=== PATIENT | male | born 1940 | race Caucasian/White ===

== ENCOUNTER 2016-05-12 06:36 | Inpatient (IN) | payer MEDICARE, BC ==
[2016-05-12 06:37] VITALS: BMI 26.7
[2016-05-12] MEDS ORDERED: Sodium Chloride 0.9% 1,000 ML IV ONE (07:15)
[2016-05-12] MEDS ORDERED: Pantoprazole 80 MG in Sodium Chloride 0.9% 100 ML IV STA (07:25)
[2016-05-12] MEDS ORDERED: Sodium Chloride 0.9% 1,000 ML ONE (07:26)
--- NOTE | 2016-05-12 07:33 | C.PDOC ---
History Of Present Illness Patient is a 75 y/o male, whose PMHx includes HTN, diabetes, anemia, afib, and prior CVA, presents to the ED for evaluation of bright red blood per rectum. Patient states he noticed blood yesterday and today as well. Patient states he had colonoscopy done on 05/09/[address] Nelson and had 2 polyps removed. at bedside called Dr. Nelson's office who instructed him to report to ED for further evaluation. Otherwise, patient denies any rectal pain, abdominal pain, nausea, vomiting, dizziness, headache, chest pain, shortness of breath, fever, or any other associated symptoms at this time. Time Seen by Provider: 05/12/16 07:14 Chief Complaint (Nursing): GI Problem History Per: Patient, Family History/Exam Limitations: clinical condition Onset/Duration Of Symptoms: Days (1) Current Symptoms Are (Timing): Still Present Number Of Bleeding Episodes: Multiple: (2) Amount of Blood Loss: Small Severity: None Pain Scale Rating Of: 0 Associated Symptoms: Rectal Bleeding. denies: Nausea, Vomiting, Diarrhea, Hematemesis, Bloody Diarrhea, Lightheadedness Modifying Factors: None Currently Taking: Warfarin Recent travel outside of the [place]: No Additional History Per: Patient Past Medical History Reviewed: Historical Data, Nursing Documentation, Vital Signs Vital Signs: Last Vital Signs Temp 97.7 F 05/12/16 06:43 Pulse 69 05/12/16 06:43 Resp 20 05/12/16 06:43 BP 155/73 H 05/12/16 06:43 Pulse Ox 98 05/12/16 08:24 - Medical History PMH: Atrial Fibrillation, HTN, Hypercholesterolemia Surgical History: Pacemaker Family History: States: Unknown Family Hx - Social History Hx Alcohol Use: No - Immunization History Hx Tetanus Toxoid Vaccination: No Hx Influenza Vaccination: Yes (11/2014) Hx Pneumococcal Vaccination: Yes (2011) Review Of Systems Constitutional: Negative for: Fever, Chills, Weakness Cardiovascular: Negative for: Chest Pain, Palpitations, Light Headedness Respiratory: Negative for: Shortness of Breath Gastrointestinal: Positive for: Hematochezia. Negative for: Nausea, Vomiting, Abdominal Pain, Diarrhea, Constipation, Hematemesis, Rectal Pain Genitourinary: Negative for: Dysuria Musculoskeletal: Negative for: Neck Pain, Back Pain Neurological: Negative for: Headache, Dizziness Physical Exam - Physical Exam Appears: Non-toxic, No Acute Distress Skin: Normal Color, Warm, Dry Head: Atraumatic, Normacephalic Eye(s): bilateral: Normal Inspection, EOMI Neck: Normal ROM, Supple Chest: Symmetrical, No Tenderness, Other (pacemaker right chest wall) Cardiovascular: Rhythm Regular Respiratory: Normal Breath Sounds, No Rales, No Rhonchi, No Wheezing Gastrointestinal/Abdominal: Normal Exam, Soft, No Tenderness, No Guarding, No Rebound Rectal: Rectal Tone (normal tone), Blood Streaked Stool (bright red blood per rectum), No Tenderness Back: Normal Inspection, No Vertebral Tenderness, No Paraspinal Tenderness Extremity: Bilateral: Atraumatic, No Pedal Edema, Normal Color And Temperature, Normal ROM Neurological/Psych: Oriented x3, Normal Speech ED Course And Treatment - Laboratory Results Result Diagrams: 05/12/16 07:38 05/12/16 07:38 Lab Interpretation: Abnormal ECG: Interpreted By Me, Viewed By Me ECG Rhythm: V Paced Interpretation Of ECG: ventricular-paced rhythm at 77 bpm. No acute change from prior EKG on 07/26/2015 Rate From EC (bpm) O2 Sat by Pulse Oximetry: 98 (on RA) Pulse Ox Interpretation: Normal Progress Note: Labs, EKG, obstructive series x-ray ordered and reviewed. Patient was treated with IV fluids, and Protonix inj. Medical Decision Making Medical Decision Making: Impression: 75 y.o male with GI bleed s.p colonoscopy and postpolypectomy. Low suspicion for perforation, patient has no abdominal pain or other related symptoms Plan: * CBC * CMP * PT/INR * IV NS, Protonix * EKG * Obstructive series Progress: Obstructive series show normal chest with pacemaker, no free air or signs of mechanical obstruction Labs show low H/H of 11/32, change from 13/40 on last visit 07/26/15 0819: Spoke with Dr Man who is covering for Dr Nelson, recommends admission and will see as consult 0820: Spoke with Dr Vazquez and discussed case who accepts patient for admission. Disposition - Disposition Disposition: HOSPITALIZED Disposition Time: 08:22 Condition: FAIR - POA Present On Arrival: None - Clinical Impression Clinical Impression: Post-polypectomy bleeding, Afib - PA / SWIM INSTRUCTOR / Resident Statement MD/DO has reviewed & agrees with the documentation as recorded. - Scribe Statement The provider has reviewed the documentation as recorded by the Scribe Erick Garcia All medical record entries made by the Luisibe were at my direction and personally dictated by me. I have reviewed the chart and agree that the record accurately reflects my personal performance of the history, physical exam, medical decision making, and the department course for this patient. I have also personally directed, reviewed, and agree with the discharge instructions and disposition. Decision To Admit - Pt Status Changed To: Hospital Disposition Of: Inpatient - Admit Certification Admit to Inpatient:: After my assessment, the patient will require hospitalization for at least two midnights. This is because of the severity of symptoms shown, intensity of services needed, and/or the medical risk in this patient being treated as an outpatient. - InPatient: Physician Admission Certification: I certify that this patient requires 2 or more midnights of care for the following reason:: Patient with history of Afib and active GI bleed - . Bed Request Type: Telemetry Admitting Physician: Rocky Vazquez Patient Diagnosis: Post-polypectomy bleeding, Afib
[2016-05-12 07:56] LABS: BASO # 0.1 K/uL (0.0-0.2); BASO % 1.1 % (0.0-2.0); EOS # 0.4 K/uL (0.0-0.7); EOS % 3.9 % (0.0-4.0); HEMATOCRIT 32.7 % (35.0-51.0); LYMPH # 2.2 K/uL (1.0-4.3); LYMPH % 20.4 % (20.0-40.0); MEAN CELL VOLUME 91.4 fL (80.0-94.0); MEAN CORPUSCULAR HEMOGLOBIN 30.8 pg (27.0-31.0); MEAN CORPUSCULAR HGB CONC 33.7 g/dL (33.0-37.0); MEAN PLATELET VOLUME 9.6 fL (7.2-11.7); MONO # 0.6 K/uL (0.0-0.8); MONO % 5.3 % (0.0-10.0); NRBC % 0.1 % (0.0-2.0); RED CELL DISTRIBUTION WIDTH 15.7 % (11.5-14.5); WHITE BLOOD COUNT 10.7 K/uL (4.8-10.8)
[2016-05-12 08:00] LABS: CHLORIDE 105 mmol/L (98-107); SODIUM 142 mmol/L (132-148)
[2016-05-12 08:01] LABS: POTASSIUM 4.2 mmol/L (3.6-5.2)
[2016-05-12 08:03] LABS: ALKALINE PHOSPHATASE 44 U/L (38-126); ALT/SGPT 43 U/L (21-72); AST/SGOT 24 U/L (17-59); BILIRUBIN,TOTAL 0.5 mg/dL (0.2-1.3); BLOOD UREA NITROGEN 25 mg/dL (9-20); CARBON DIOXIDE 27 mmol/L (22-30); GFR AFRICAN-AMERICAN > 60; GLUCOSE,RANDOM 139 mg/dL (75-110); INR 1.3; TOTAL PROTEIN 7.3 g/dL (6.3-8.3)
[2016-05-12 08:04] LABS: CALCIUM 8.6 mg/dl (8.6-10.4)
[2016-05-12 08:06] LABS: RBC URINE < 1 /hpf (0-3); URINE BACTERIA RARE (<OCC); URINE BILIRUBIN NEGATIVE (NEGATIVE); URINE BLOOD NEGATIVE (NEGATIVE); URINE COLOR Yellow (YELLOW); URINE GLUCOSE (UA) NORMAL (Normal); URINE HYALINE CAST 0-2 /lpf (0-2); URINE KETONE NEGATIVE (NEGATIVE); URINE LEUKOCYTE ESTERASE NEG Leu/uL (Negative); URINE PROTEIN 1+ mg/dL (NEGATIVE); URINE UROBILINOGEN NORMAL mg/dL (0.2-1.0); WBC URINE < 1 /hpf (0-5)
[2016-05-12] MEDS: Dextrose 5%/0.9% NS 1,000 ML IV SCH (09:58)
--- NOTE | 2016-05-12 10:24 | CP.PCM.CON ---
History of Present Illness - History of Present Illness History of Present Illness: ASked to see pt for rectal bleeding. Covering Dr Neslon is present. She called me at 5 am that is bleeding. I sent her to ER. Had EGD and biopsy and colonoscopy and polypectomy with clips on . Coumadins was held and he eceived lovenox. Pt was told to take coumadin , but he didnt start til friday. He took lovenox friday and friday. Last night he developed a maroon stool which turned into BRBPR. Had 3 episodes of BRBPR, moderate amount. DEnies CP, SOB, fever, abdom pain. PMH: HTN, DM, A fib, anemia- Hb 11 04/24/16, CVA x 2. Review of Systems - Cardiovascular Cardiovascular: absent: Chest Pain, Diaphoresis, Dyspnea, Lightheadedness, Palpitations - Respiratory Respiratory: absent: Cough, Dyspnea, Hemoptysis - Gastrointestinal Gastrointestinal: Hematochezia. absent: Abdominal Pain, Constipation, Diarrhea , Dysphagia, Hematemesis, Melena, Vomiting - Genitourinary Genitourinary: absent: Flank Pain, Hematuria - Integumentary Integumentary: absent: Rash, Jaundice - Neurological Neurological: absent: Convulsions, Headaches - Endocrine Endocrine: absent: Flushing, Polyphagia Past Patient History - Past Medical History & Family History Past Medical History?: Yes - Past Social History Smoking Status: Never Smoked - CARDIAC Hx Atrial Fibrillation: Yes Hx Hypercholesterolemia: Yes Hx Hypertension: Yes Hx Pacemaker: Yes - PULMONARY Hx Respiratory Disorders: No - NEUROLOGICAL Hx Neurological Disorder: Yes HX Cerebrovascular Accident: Yes (x3) - ENDOCRINE/METABOLIC Hx Diabetes Mellitus Type 1: Yes - MUSCULOSKELETAL/RHEUMATOLOGICAL Hx Musculoskeletal Disorders: Yes Hx Gout: Yes - SURGICAL HISTORY Hx Surgeries: Yes Hx Cataract Extraction: Yes (Bilateral) Other/Comment: PPM - ANESTHESIA Hx Anesthesia: Yes Hx Anesthesia Reactions: No Meds Allergies/Adverse Reactions: Allergies Allergy/AdvReac Type Severity Reaction Status Date / Time IV dye Allergy Severe SHORTNESS Uncoded 07/26/15 21:33 OF BREATH - Medications Medications: Current Medications Carvedilol (Coreg) 25 mg PO BID [facility] Digoxin (Lanoxin) 0.25 mg PO DAILY [facility] Dextrose/Sodium Chloride (Dextrose 5%/0.9% Ns 1000 Ml) 1,000 mls @ 100 mls/hr IV UPON ADM [facility] Last Admin: 05/12/16 09:58 Dose: 100 mls/hr Insulin Aspart (Novolog) 0 unit SC ACHS [facility] PRN Reason: Protocol Latanoprost (Xalatan Opht) 0.01 ml OU HS [facility] Lisinopril (Zestril) 10 mg PO DAILY [facility] Pantoprazole Sodium (Protonix Ec Tab) 40 mg PO DAILY [facility] Physical Exam - Constitutional Appears: Well - ENT Exam ENT Exam: Normal Exam - Neck Exam Neck exam: Positive for: Full Rom - Respiratory Exam Respiratory Exam: Clear to Auscultation Bilateral - Cardiovascular Exam Cardiovascular Exam: Irregular Rhythm. absent: REGULAR RHYTHM - GI/Abdominal Exam GI & Abdominal Exam: Normal Bowel Sounds, Soft. absent: Guarding, Tenderness - Extremities Exam Extremities exam: Negative for: calf tenderness - Neurological Exam Neurological exam: Alert, Oriented x3 - Psychiatric Exam Psychiatric exam: Normal Affect Results - Vital Signs Recent Vital Signs: Last Vital Signs Temp 97.7 F 05/12/16 06:43 Pulse 69 05/12/16 06:43 Resp 20 05/12/16 06:43 BP 155/73 H 05/12/16 06:43 Pulse Ox 98 05/12/16 08:36 - Labs Result Diagrams: 05/12/16 07:38 05/12/16 07:38 Assessment & Plan (1) Afib Assessment and Plan: On coumadin. Bridged with lovenox for colonsocopy Status: Acute (2) Post-polypectomy bleeding Assessment and Plan: Lower GI bleed. Likely post- polypectomy. Hb is the same as baseline. REC: Follow for bleeding. Check Hb. Hold coumadin. Hold lovenox. NPO, . COnsider repeat colonoscopy. Status: Acute (3) Hypertension Status: Acute (4) IDDM (insulin dependent diabetes mellitus) Status: Acute (5) Cerebrovascular accident (CVA) Status: Acute (6) Colon polyps Assessment and Plan: Check path Status: Acute (7) Diverticulosis Assessment and Plan: Seen at colonoscopy. Status: Acute
[2016-05-12] MEDS ORDERED: Digoxin 250 mcg (0.25 mg) Tab ONE (10:26)
[2016-05-12] MEDS ORDERED: Pantoprazole 40 mg EC Tab PO ONE (10:27)
[2016-05-12] MEDS: Digoxin 250 mcg (0.25 mg) Tab PO SCH (10:31)
[2016-05-12] MEDS: Pantoprazole 40 mg EC Tab PO SCH (10:32)
[2016-05-12 13:01] LABS: HEMATOCRIT 31.1 % (35.0-51.0); MEAN CELL VOLUME 92.1 fL (80.0-94.0); MEAN CORPUSCULAR HEMOGLOBIN 30.3 pg (27.0-31.0); MEAN CORPUSCULAR HGB CONC 32.9 g/dL (33.0-37.0); MEAN PLATELET VOLUME 9.7 fL (7.2-11.7); RED CELL DISTRIBUTION WIDTH 15.3 % (11.5-14.5); WHITE BLOOD COUNT 11.6 K/uL (4.8-10.8)
--- NOTE | 2016-05-12 13:12 | RAD ---
Chest abdominal series dated 05/12/2016. History: GI bleed. Frontal view of the chest and supine/erect views of the abdomen performed. Comparison made with obstructive series dated prior chest radiograph dated 09/08/2015. No change right-sided bipolar pacemaker. Cardiomegaly. Mild bibasilar atelectasis left greater than right. No evidence of free intraperitoneal air under the diaphragmatic surfaces so far as can be seen. No evidence of acute mechanical bowel obstruction. Large amount of stool seen throughout the colon consistent with fecal retention/ constipation. Thin metallic clips/ wires seen overlying the left upper and right mid abdomen. Impression: Mild bibasilar atelectasis. Findings consistent with constipation.
[2016-05-12] MEDS ORDERED: Peg-Electrolyte Oral Soln 4L (Golytely) PO ONE (14:00)
[2016-05-12 17:29] LABS: BASO # 0.1 K/uL (0.0-0.2); BASO % 0.9 % (0.0-2.0); EOS # 0.3 K/uL (0.0-0.7); EOS % 2.8 % (0.0-4.0); HEMATOCRIT 29.7 % (35.0-51.0); LYMPH # 2.3 K/uL (1.0-4.3); LYMPH % 21.7 % (20.0-40.0); MEAN CELL VOLUME 91.2 fL (80.0-94.0); MEAN CORPUSCULAR HEMOGLOBIN 30.3 pg (27.0-31.0); MEAN CORPUSCULAR HGB CONC 33.2 g/dL (33.0-37.0); MEAN PLATELET VOLUME 9.7 fL (7.2-11.7); MONO # 0.6 K/uL (0.0-0.8); RED CELL DISTRIBUTION WIDTH 15.4 % (11.5-14.5); WHITE BLOOD COUNT 10.4 K/uL (4.8-10.8)
--- NOTE | 2016-05-12 17:45 | CP.PCM.HP ---
History of Present Illness - History of Present Illness History of Present Illness: 75 years old [place] male was brought to the ED at [facility] complaining of passing bright red blood per rectum last night. Patient underwent a colonoscopy 2 days ago for anemia, and 2 colnic plyps were resected and clipped. He resume Warfarin and Lovenox lest night. He denies any abdominal pain , any nausea, vomitng. His Hgb in the ED went from 11.0 to 10.2. No complaint of weakness, dizziness. Known to have a chronic atrial fibrillation, a hypertension, an IDDM, a permanent pacemaker, a s/p CVA with residual mild dysarthria, his Warfarin was held 5 days prior to the colonoscopy and Levenox was instituted until the morning one prior to the colonoscopy. Present on Admission - Present on Admission Any Indicators Present on Admission: No Review of Systems - Gastrointestinal Gastrointestinal: Hematochezia Past Patient History - Infectious Disease Hx of Infectious Diseases: None - Tetanus Immunizations Tetanus Immunization: Unknown - Past Medical History & Family History Past Medical History?: Yes - Past Social History Smoking Status: Never Smoked Alcohol: None Home Situation {Lives}: With Family Domestic Violence: Negative - CARDIAC Hx Atrial Fibrillation: Yes Hx Hypercholesterolemia: Yes Hx Hypertension: Yes Hx Pacemaker: Yes - PULMONARY Hx Respiratory Disorders: No - NEUROLOGICAL Hx Neurological Disorder: Yes HX Cerebrovascular Accident: Yes (x3) - ENDOCRINE/METABOLIC Hx Diabetes Mellitus Type 1: Yes - MUSCULOSKELETAL/RHEUMATOLOGICAL Hx Musculoskeletal Disorders: Yes Hx Gout: Yes - SURGICAL HISTORY Hx Surgeries: Yes Hx Cataract Extraction: Yes (Bilateral) Other/Comment: PPM - ANESTHESIA Hx Anesthesia: Yes Hx Anesthesia Reactions: No Meds Allergies/Adverse Reactions: Allergies Allergy/AdvReac Type Severity Reaction Status Date / Time IV dye Allergy Severe SHORTNESS Uncoded 07/26/15 21:33 OF BREATH Physical Exam - Constitutional Appears: Well - Head Exam Head Exam: NORMAL INSPECTION - Eye Exam Eye Exam: Normal appearance - ENT Exam ENT Exam: Normal Exam - Neck Exam Neck exam: Positive for: Normal Inspection - Respiratory Exam Respiratory Exam: Clear to Auscultation Bilateral, NORMAL BREATHING PATTERN - Cardiovascular Exam Cardiovascular Exam: Irregular Rhythm, Systolic Murmur - GI/Abdominal Exam GI & Abdominal Exam: Normal Bowel Sounds, Soft - Rectal Exam Rectal Exam: Bloody Stool - Exam Exam: NORMAL INSPECTION - Extremities Exam Extremities exam: Positive for: normal inspection - Back Exam Back exam: NORMAL INSPECTION - Neurological Exam Neurological exam: Alert, CN II-XII Intact, Normal Gait, Oriented x3, Reflexes Normal - Psychiatric Exam Psychiatric exam: Anxious - Skin Skin Exam: Dry, Intact, Normal Color, Warm Results - Vital Signs Recent Vital Signs: Last Vital Signs Temp 97.7 F 05/12/16 06:43 Pulse 58 L 05/12/16 13:38 Resp 18 05/12/16 13:38 BP 141/63 05/12/16 13:38 Pulse Ox 99 05/12/16 13:38 - Labs Result Diagrams: 05/12/16 12:49 05/12/16 07:38 Labs: Laboratory Results - last 24 hr 05/12/16 05/12/16 12:49 13:44 WBC 11.6 H RBC 3.37 L Hgb 10.2 L Hct 31.1 L MCV 92.1 MCH 30.3 MCHC 32.9 L RDW 15.3 H Plt Count 131 MPV 9.7 POC Glucose (mg/dL) 172 H Assessment & Plan (1) Rectal bleeding Assessment and Plan: NPO. Serial CBC. Admit to telemetry with VS q 4 H. Hold Lovenx, Warfarin. GI evaluation. Status: Acute (2) Chronic atrial fibrillation Assessment and Plan: To continue Carvedilol, Digoxin. Hold Warfarin, Lovenox because of rectal bleeding. Status: Acute (3) IDDM (insulin dependent diabetes mellitus) Assessment and Plan: To cover blood glucose with Novolog according to Accucheck findings. Status: Acute Decision To Admit - Pt Status Changed To: Hospital Disposition Of: Inpatient - Admit Certification Admit to Inpatient:: After my assessment, the patient will require hospitalization for at least two midnights. This is because of the severity of symptoms shown, intensity of services needed, and/or the medical risk in this patient being treated as an outpatient. - InPatient: Physician Admission Certification:: After my assessments, the patient requires hospitalization for at least 2 midnights. - . Bed Request Type: Telemetry Admitting Physician: Rocky Vazquez
[2016-05-12] MEDS: (Novolog) Insulin Aspart, Recombinant 100 u/ml 10 ml vial SC SCH ×3 (18:59→23:56)
[2016-05-12] MEDS: Latanoprost 2.5 ml Opht Soln OU SCH (23:15)
[2016-05-13] MEDS: Dextrose 5%/0.9% NS 1,000 ML IV SCH (00:51)
[2016-05-13 04:54] LABS: HEMATOCRIT 26.6 % (35.0-51.0); MEAN CELL VOLUME 90.6 fL (80.0-94.0); MEAN CORPUSCULAR HEMOGLOBIN 30.6 pg (27.0-31.0); MEAN CORPUSCULAR HGB CONC 33.8 g/dL (33.0-37.0); RED CELL DISTRIBUTION WIDTH 15.7 % (11.5-14.5); WHITE BLOOD COUNT 9.3 K/uL (4.8-10.8)
[2016-05-13] MEDS: (Novolog) Insulin Aspart, Recombinant 100 u/ml 10 ml vial SC SCH ×4 (07:51→22:00)
[2016-05-13] MEDS ORDERED: Propofol 10 mg/ml Inj (20 ML) ONE (09:46)
[2016-05-13] MEDS ORDERED: Lactated Ringer's 1,000 ML IV SCH (10:00)
[2016-05-13] MEDS: Pantoprazole 40 mg EC Tab PO SCH (11:42)
[2016-05-13 11:43] VITALS: PULSE 64
[2016-05-13] MEDS: Digoxin 250 mcg (0.25 mg) Tab PO SCH (11:43)
[2016-05-13 16:49] VITALS: RESP 20
[2016-05-13 17:18] LABS: BASO # 0.1 K/uL (0.0-0.2); BASO % 1.1 % (0.0-2.0); EOS # 0.3 K/uL (0.0-0.7); EOS % 3.1 % (0.0-4.0); HEMATOCRIT 27.8 % (35.0-51.0); LYMPH # 2.4 K/uL (1.0-4.3); MEAN CELL VOLUME 92.2 fL (80.0-94.0); MEAN CORPUSCULAR HGB CONC 32.5 g/dL (33.0-37.0); MEAN PLATELET VOLUME 9.8 fL (7.2-11.7); MONO # 0.6 K/uL (0.0-0.8); MONO % 6.3 % (0.0-10.0); RED CELL DISTRIBUTION WIDTH 15.6 % (11.5-14.5)
[2016-05-13] MEDS ORDERED: Aluminum Hydroxide/Magnesium Hydroxide Susp (30 mL) PO ONE (21:00)
[2016-05-13] MEDS: Latanoprost 2.5 ml Opht Soln OU SCH (22:10)
[2016-05-13] MEDS: Enoxaparin 80 mg Syringe SC SCH (22:10)
--- NOTE | 2016-05-13 22:40 | CP.PCM.PN ---
Subjective - Date & Time of Evaluation Date of Evaluation: 05/13/16 Time of Evaluation: 19:30 - Subjective Subjective: Patient had colonoscopy this AM. No active bleeding. Additional clips were placed at the areas of polypectomy. Patient has no complaint, on clear liquid diet. Dr Nelson advised restarting anticoagulation. If Hgb remains stable in AM, will discharge home. Objective - Vital Signs/Intake and Output Vital Signs (last 24 hours): Temp Pulse Resp BP Pulse Ox 97.2 F L 67 20 134/66 96 05/13/16 16:47 05/13/16 16:47 05/13/16 16:47 05/13/16 17:46 05/13/16 16:47 Intake and Output: 05/13/16 05/14/16 18:59 06:59 Intake Total 0 Balance 2110 - Medications Medications: Current Medications Carvedilol (Coreg) 25 mg PO BID [facility] Last Admin: 05/13/16 17:46 Dose: 25 mg Digoxin (Lanoxin) 0.25 mg PO DAILY [facility] Last Admin: 05/13/16 11:43 Dose: 0.25 mg Enoxaparin Sodium (Lovenox) 70 mg SC Q12 [facility] Last Admin: 05/13/16 22:10 Dose: 70 mg Dextrose/Sodium Chloride (Dextrose 5%/0.9% Ns 1000 Ml) 1,000 mls @ 100 mls/hr IV UPON ADM [facility] Last Admin: 05/13/16 00:51 Dose: 100 mls/hr Lactated Ringer's (Lactated Ringer's) 1,000 mls @ 100 mls/hr IV .Q10H [facility] Insulin Aspart (Novolog) 0 unit SC ACHS [facility] PRN Reason: Protocol Last Admin: 05/13/16 22:00 Dose: Not Given Latanoprost (Xalatan Opht) 0 ml OU HS [facility] Last Admin: 05/13/16 22:10 Dose: 2.5 ml Lisinopril (Zestril) 10 mg PO DAILY [facility] Last Admin: 05/13/16 11:58 Dose: Not Given Pantoprazole Sodium (Protonix Ec Tab) 40 mg PO DAILY [facility] Last Admin: 05/13/16 11:42 Dose: 40 mg - Labs Labs: 05/13/16 17:06 PT 14.0 SECONDS (9.7-12.2) H 05/12/16 07:38 INR 1.3 05/12/16 07:38 APTT 43 SECONDS (21-34) H 05/13/16 06:14 - Constitutional Appears: No Acute Distress - Head Exam Head Exam: NORMAL INSPECTION - Eye Exam Eye Exam: Normal appearance - ENT Exam ENT Exam: Normal Exam - Neck Exam Neck Exam: Normal Inspection - Respiratory Exam Respiratory Exam: Clear to Ausculation Bilateral, NORMAL BREATHING PATTERN - Cardiovascular Exam Cardiovascular Exam: Irregular Rhythm - GI/Abdominal Exam GI & Abdominal Exam: Soft, Normal Bowel Sounds - Rectal Exam Rectal Exam: Deferred - Exam Exam: NORMAL INSPECTION - Extremities Exam Extremities Exam: Normal Inspection - Back Exam Back Exam: NORMAL INSPECTION - Neurological Exam Neurological Exam: Alert, Awake, Normal Gait, Oriented x3 - Psychiatric Exam Psychiatric exam: Anxious - Skin Skin Exam: Dry, Intact, Normal Color, Warm Assessment and Plan (1) Rectal bleeding Status: Resolved (2) Chronic atrial fibrillation Assessment & Plan: Will restart Lovenox. Status: Acute (3) IDDM (insulin dependent diabetes mellitus) Assessment & Plan: To continue Glucose coverage with regular Novolog according to Accucheck findings. Status: Acute
[2016-05-14 06:21] LABS: BASO # 0.1 K/uL (0.0-0.2); BASO % 0.8 % (0.0-2.0); EOS # 0.3 K/uL (0.0-0.7); HEMATOCRIT 26.1 % (35.0-51.0); LYMPH # 2.4 K/uL (1.0-4.3); LYMPH % 27.7 % (20.0-40.0); MEAN CELL VOLUME 91.7 fL (80.0-94.0); MEAN CORPUSCULAR HEMOGLOBIN 30.4 pg (27.0-31.0); MEAN CORPUSCULAR HGB CONC 33.2 g/dL (33.0-37.0); MEAN PLATELET VOLUME 9.9 fL (7.2-11.7); MONO # 0.6 K/uL (0.0-0.8); MONO % 6.6 % (0.0-10.0); RED CELL DISTRIBUTION WIDTH 15.9 % (11.5-14.5); WHITE BLOOD COUNT 8.7 K/uL (4.8-10.8)
[2016-05-14 06:25] LABS: CHLORIDE 102 mmol/L (98-107)
[2016-05-14 06:26] LABS: POTASSIUM 3.8 mmol/L (3.6-5.2); SODIUM 139 mmol/L (132-148)
[2016-05-14 06:28] LABS: ALB/GLOB RATIO 1.1 (1.0-2.1); AST/SGOT 22 U/L (17-59); BILIRUBIN,TOTAL 0.7 mg/dL (0.2-1.3); BLOOD UREA NITROGEN 11 mg/dL (9-20); CARBON DIOXIDE 28 mmol/L (22-30); GFR AFRICAN-AMERICAN > 60; TOTAL PROTEIN 6.3 g/dL (6.3-8.3)
[2016-05-14 06:29] LABS: ALKALINE PHOSPHATASE 43 U/L (38-126); ALT/SGPT 40 U/L (21-72); CALCIUM 7.7 mg/dl (8.6-10.4); GLUCOSE,RANDOM 141 mg/dL (75-110)
[2016-05-14] MEDS: (Novolog) Insulin Aspart, Recombinant 100 u/ml 10 ml vial SC SCH ×2 (08:23→12:30)
[2016-05-14] MEDS: Pantoprazole 40 mg EC Tab PO SCH (09:43)
[2016-05-14] MEDS: Enoxaparin 80 mg Syringe SC SCH ×2 (09:44→16:14)
[2016-05-14] MEDS: Dextrose 5%/0.9% NS 1,000 ML IV SCH (09:45)
[2016-05-14 15:28] VITALS: BP 136/52; PULSE 70; TEMP 97.6; O2SAT 100
--- NOTE | 2016-05-14 15:30 | CP.PCM.PN ---
Subjective - Date & Time of Evaluation Date of Evaluation: 05/14/16 Time of Evaluation: 15:27 - Subjective Subjective: Patient a BM today: No blood in stools. VSS. Hgb: 8.6 Objective - Vital Signs/Intake and Output Vital Signs (last 24 hours): Temp Pulse Resp BP Pulse Ox 98.5 F 75 20 116/69 96 05/14/16 07:43 05/14/16 12:42 05/14/16 07:43 05/14/16 12:42 05/14/16 07:43 Intake and Output: 05/14/16 05/14/16 06:59 18:59 Intake Total 420 Balance 420 - Medications Medications: Current Medications Carvedilol (Coreg) 25 mg PO BID [facility] Last Admin: 05/14/16 09:43 Dose: 25 mg Digoxin (Lanoxin) 0.25 mg PO DAILY@1800 [facility] Enoxaparin Sodium (Lovenox) 70 mg SC Q12 [facility] Last Admin: 05/14/16 09:44 Dose: 70 mg Dextrose/Sodium Chloride (Dextrose 5%/0.9% Ns 1000 Ml) 1,000 mls @ 100 mls/hr IV UPON ADM [facility] Last Admin: 05/13/16 00:51 Dose: 100 mls/hr Lactated Ringer's (Lactated Ringer's) 1,000 mls @ 100 mls/hr IV .Q10H [facility] Insulin Aspart (Novolog) 0 unit SC ACHS [facility] PRN Reason: Protocol Last Admin: 05/14/16 12:30 Dose: 4 unit Latanoprost (Xalatan Opht) 0 ml OU HS [facility] Last Admin: 05/13/16 22:10 Dose: 2.5 ml Lisinopril (Zestril) 10 mg PO DAILY [facility] Last Admin: 05/14/16 09:43 Dose: 10 mg Pantoprazole Sodium (Protonix Ec Tab) 40 mg PO DAILY [facility] Last Admin: 05/14/16 09:43 Dose: 40 mg - Labs Labs: 05/14/16 06:08 05/14/16 06:08 PT 14.0 SECONDS (9.7-12.2) H 05/12/16 07:38 INR 1.3 05/12/16 07:38 APTT 43 SECONDS (21-34) H 05/13/16 06:14 - Constitutional Appears: No Acute Distress - Head Exam Head Exam: NORMAL INSPECTION - Eye Exam Eye Exam: Normal appearance - ENT Exam ENT Exam: Normal Exam - Neck Exam Neck Exam: Normal Inspection - Respiratory Exam Respiratory Exam: Clear to Ausculation Bilateral, NORMAL BREATHING PATTERN - Cardiovascular Exam Cardiovascular Exam: Irregular Rhythm - GI/Abdominal Exam GI & Abdominal Exam: Soft, Normal Bowel Sounds - Rectal Exam Rectal Exam: Deferred - Exam Exam: NORMAL INSPECTION - Extremities Exam Extremities Exam: Normal Inspection - Back Exam Back Exam: NORMAL INSPECTION - Neurological Exam Neurological Exam: Alert, Awake, Normal Gait, Oriented x3 - Psychiatric Exam Psychiatric exam: Anxious - Skin Skin Exam: Dry, Intact, Normal Color Assessment and Plan (1) Rectal bleeding Status: Resolved (2) Chronic atrial fibrillation Assessment & Plan: To restart Warfarin and continue Lovenox 70 mg s/c BID for another 2 days. Status: Chronic (3) IDDM (insulin dependent diabetes mellitus) Assessment & Plan: Resume his usual low fat, low salt, low carbohydrate diet. Resume all his home meds. Status: Chronic
--- NOTE | 2016-05-14 16:15 | CP.PCM.CON ---
<Talya Espino - Last Filed: 05/14/16 16:11> History of Present Illness - History of Present Illness History of Present Illness: Cardiology progress note for Dr Gerber. Reason for consult: private director of social services, gi bleeding. Patient is a 75 y/o male with PMH of afib ( was on coumadin), s/p pacemaker, DM , htn, h/o cva, and iron deficiency anemia with no residue presented on 05/12 with bright red blood per rectum. Patient had colonoscopy with polypectomy 2 days prior to presenting, where 2 polyps were removed with clipping. Patient resumed Lovenox and Coumadin prior to this episode. During this hospitalization, patient had a repeat colonoscopy with no active bleeding noted, additional clips were applied by Gi. Patient remains hemodynamically stable, on tele floor. Patient currently resting on the bed, in no acute distress, Patient denies cp, sob, headache, dizziness, palpitations. PMH: As stated above PSH: Colonoscopy, pacemaker insertion. Social: denies alcohol, tobacco or illicit drug use. Allergy: IV dye. Review of Systems - Review of Systems All systems: reviewed and no additional remarkable complaints except Review of Systems: As mentioned in HPI. Past Patient History - Infectious Disease Hx of Infectious Diseases: None - Tetanus Immunizations Tetanus Immunization: Unknown - Past Medical History & Family History Past Medical History?: Yes - Past Social History Smoking Status: Never Smoked Alcohol: None Drugs: Denies Home Situation {Lives}: With Family - CARDIAC Hx Cardiac Disorders: (A-fib) Hx Hypercholesterolemia: Yes Hx Hypertension: Yes - PULMONARY Hx Respiratory Disorders: No - NEUROLOGICAL Hx Neurological Disorder: Yes HX Cerebrovascular Accident: Yes (x3) - ENDOCRINE/METABOLIC Hx Diabetes Mellitus Type 1: Yes - MUSCULOSKELETAL/RHEUMATOLOGICAL Hx Falls: No - PSYCHIATRIC Hx Substance Use: No - SURGICAL HISTORY Hx Surgeries: Yes Hx Cataract Extraction: Yes (Bilateral) Other/Comment: PPM - ANESTHESIA Hx Anesthesia: Yes Hx Anesthesia Reactions: No Meds Home Medications: Home Medication List Medication Instructions Recorded Confirmed Type Enoxaparin [Lovenox] 70 mg SC Q12 syr 05/14/16 Rx Allergies/Adverse Reactions: Allergies Allergy/AdvReac Type Severity Reaction Status Date / Time IV dye Allergy Severe SHORTNESS Uncoded 07/26/15 21:33 OF BREATH - Medications Medications: Current Medications Carvedilol (Coreg) 25 mg PO BID [facility] Last Admin: 05/14/16 09:43 Dose: 25 mg Digoxin (Lanoxin) 0.25 mg PO DAILY@1800 DELON Enoxaparin Sodium (Lovenox) 70 mg SC Q12 [facility] Last Admin: 05/14/16 09:44 Dose: 70 mg Lactated Ringer's (Lactated Ringer's) 1,000 mls @ 100 mls/hr IV .Q10H [facility] Insulin Aspart (Novolog) 0 unit SC ACHS [facility] PRN Reason: Protocol Last Admin: 05/14/16 12:30 Dose: 4 unit Latanoprost (Xalatan Opht) 0 ml OU HS [facility] Last Admin: 05/13/16 22:10 Dose: 2.5 ml Lisinopril (Zestril) 10 mg PO DAILY [facility] Last Admin: 05/14/16 09:43 Dose: 10 mg Pantoprazole Sodium (Protonix Ec Tab) 40 mg PO DAILY [facility] Last Admin: 05/14/16 09:43 Dose: 40 mg Physical Exam - Constitutional Appears: No Acute Distress - Head Exam Head Exam: ATRAUMATIC, NORMAL INSPECTION, NORMOCEPHALIC - Eye Exam Eye Exam: EOMI, Normal appearance. absent: Scleral icterus Pupil Exam: NORMAL ACCOMODATION - ENT Exam ENT Exam: Mucous Membranes Moist - Neck Exam Neck exam: Positive for: Normal Inspection - Respiratory Exam Respiratory Exam: Clear to Auscultation Bilateral, NORMAL BREATHING PATTERN. absent: Prolonged Expiratory Phase, Rales, Rhonchi, Wheezes, Stridor - Cardiovascular Exam Cardiovascular Exam: REGULAR RHYTHM, RRR, +S1, +S2. absent: Irregular Rhythm - GI/Abdominal Exam GI & Abdominal Exam: Normal Bowel Sounds, Soft. absent: Distended, Firm, Guarding - Extremities Exam Extremities exam: Positive for: normal inspection. Negative for: tenderness - Neurological Exam Neurological exam: Alert, Oriented x3 - Psychiatric Exam Psychiatric exam: Normal Affect, Normal Mood - Skin Skin Exam: Dry, Intact, Normal Color, Warm Results - Vital Signs Recent Vital Signs: Last Vital Signs Temp 97.6 F 05/14/16 15:27 Pulse 70 05/14/16 15:27 Resp 20 05/14/16 15:27 BP 136/52 L 05/14/16 15:27 Pulse Ox 100 05/14/16 15:27 - Labs Result Diagrams: 05/14/16 06:08 05/14/16 06:08 Labs: Laboratory Results - last 24 hr 05/13/16 05/13/16 05/13/16 16:52 17:06 19:58 WBC 9.0 RBC 3.01 L Hgb 9.0 L Hct 27.8 L MCV 92.2 MCH 30.0 MCHC 32.5 L RDW 15.6 H Plt Count 127 L MPV 9.8 Neut % (Auto) 63.5 Lymph % (Auto) 26.0 [place] % (Auto) 6.3 Eos % (Auto) 3.1 Baso % (Auto) 1.1 Neut # 5.7 Lymph # 2.4 [place] # 0.6 Eos # 0.3 Baso # 0.1 Sodium Potassium Chloride Carbon Dioxide Anion Gap BUN Creatinine Est GFR ( Amer) Est GFR (Non-Af Amer) POC Glucose (mg/dL) 156 H Random Glucose Calcium Total Bilirubin AST ALT Alkaline Phosphatase Total Protein Albumin Globulin Albumin/Globulin Ratio Digoxin 1.6 05/13/16 05/14/16 05/14/16 21:16 06:08 06:35 WBC 8.7 RBC 2.84 L Hgb 8.6 L Hct 26.1 L MCV 91.7 MCH 30.4 MCHC 33.2 RDW 15.9 H Plt Count 122 L MPV 9.9 Neut % (Auto) 60.9 Lymph % (Auto) 27.7 [place] % (Auto) 6.6 Eos % (Auto) 4.0 Baso % (Auto) 0.8 Neut # 5.3 Lymph # 2.4 [place] # 0.6 Eos # 0.3 Baso # 0.1 Sodium 139 Potassium 3.8 Chloride 102 Carbon Dioxide 28 Anion Gap 13 BUN 11 Creatinine 1.0 Est GFR ( Amer) > 60 Est GFR (Non-Af Amer) > 60 POC Glucose (mg/dL) 190 H 159 H Random Glucose 141 H Calcium 7.7 L Total Bilirubin 0.7 AST 22 ALT 40 Alkaline Phosphatase 43 Total Protein 6.3 Albumin 3.3 L Globulin 3.0 Albumin/Globulin Ratio 1.1 Digoxin 05/14/16 11:24 WBC RBC Hgb Hct MCV MCH MCHC RDW Plt Count MPV Neut % (Auto) Lymph % (Auto) [place] % (Auto) Eos % (Auto) Baso % (Auto) Neut # Lymph # [place] # Eos # Baso # Sodium Potassium Chloride Carbon Dioxide Anion Gap BUN Creatinine Est GFR ( Amer) Est GFR (Non-Af Amer) POC Glucose (mg/dL) 295 H Random Glucose Calcium Total Bilirubin AST ALT Alkaline Phosphatase Total Protein Albumin Globulin Albumin/Globulin Ratio Digoxin - EKG Data EKG Interpreted by: Other (Normal pacing ventricular rythm) Assessment & Plan - Assessment and Plan (Free Text) Assessment: 75 y/o with PMH of afib ( was on coumadin), s/p pacemaker, DM, htn, h/o cva, and iron deficiency anemia s/p colonoscopy with polypectomy and clipping admitted with bright red blood per rectum. BRBPR has resolved. Plan: Patient can be discharged, to follow up with Dr Gerber as outpatient. Patient can resume anticoagulation if there's no active Gi bleeding. Resume nelson and bb. Patient seen, examined, case discussed with Dr Gerber. - Date & Time Date: 05/14/16 Time: 15:25 <Kirk Gerber - Last Filed: 05/14/16 21:46> Results - Vital Signs Recent Vital Signs: Last Vital Signs Temp 97.6 F 05/14/16 15:27 Pulse 70 05/14/16 16:00 Resp 20 05/14/16 15:27 BP 136/52 L 05/14/16 15:27 Pulse Ox 100 05/14/16 15:27 - Labs Result Diagrams: 05/14/16 06:08 05/14/16 06:08 Labs: Laboratory Results - last 24 hr 05/13/16 05/14/16 05/14/16 19:58 06:08 06:35 WBC 8.7 RBC 2.84 L Hgb 8.6 L Hct 26.1 L MCV 91.7 MCH 30.4 MCHC 33.2 RDW 15.9 H Plt Count 122 L MPV 9.9 Neut % (Auto) 60.9 Lymph % (Auto) 27.7 [place] % (Auto) 6.6 Eos % (Auto) 4.0 Baso % (Auto) 0.8 Neut # 5.3 Lymph # 2.4 [place] # 0.6 Eos # 0.3 Baso # 0.1 Sodium 139 Potassium 3.8 Chloride 102 Carbon Dioxide 28 Anion Gap 13 BUN 11 Creatinine 1.0 Est GFR ( Amer) > 60 Est GFR (Non-Af Amer) > 60 POC Glucose (mg/dL) 159 H Random Glucose 141 H Calcium 7.7 L Total Bilirubin 0.7 AST 22 ALT 40 Alkaline Phosphatase 43 Total Protein 6.3 Albumin 3.3 L Globulin 3.0 Albumin/Globulin Ratio 1.1 Digoxin 1.6 05/14/16 05/14/16 11:24 16:36 WBC RBC Hgb Hct MCV MCH MCHC RDW Plt Count MPV Neut % (Auto) Lymph % (Auto) [place] % (Auto) Eos % (Auto) Baso % (Auto) Neut # Lymph # [place] # Eos # Baso # Sodium Potassium Chloride Carbon Dioxide Anion Gap BUN Creatinine Est GFR ( Amer) Est GFR (Non-Af Amer) POC Glucose (mg/dL) 295 H 118 H Random Glucose Calcium Total Bilirubin AST ALT Alkaline Phosphatase Total Protein Albumin Globulin Albumin/Globulin Ratio Digoxin Attending/Attestation - Attestation I have personally seen and examined this patient.: Yes I have fully participated in the care of the patient.: Yes I have reviewed all pertinent clinical information: Yes Notes (Text): 05/14/16 21:46 Pt s/p ppm generator change h/o atrial fibrillation gi bleed 2 polyps found . resume a/c for stroke prevention when stable
[2016-05-14] MEDS ORDERED: Digoxin 250 mcg (0.25 mg) Tab PO SCH (18:00)
--- NOTE | 2016-05-15 08:06 | CARD ---
APPROVED REPORT EKG Measurement Heart [id number] <Conclusion> Ventricular-paced rhythm Abnormal ECG
--- NOTE | 2016-05-16 09:03 | CP.PCM.DIS ---
Provider - Provider Date of Admission: 05/12/16 08:21 Attending physician: Rocky Vazquez MD Primary care physician: Rocky Vazquez M.D. Consults: Dr. Eliezer Neslon Time Spent in preparation of Discharge (in minutes): 30 Diagnosis - Discharge Diagnosis (1) Rectal bleeding Status: Resolved (2) Chronic atrial fibrillation Status: Chronic (3) IDDM (insulin dependent diabetes mellitus) Status: Chronic Hospital Course - Lab Results Lab Results: Most Recent Lab Values WBC 8.7 K/uL (4.8-10.8) 05/14/16 06:08 RBC 2.84 Mil/uL (4.40-5.90) L 05/14/16 06:08 Hgb 8.6 g/dL (12.0-18.0) L 05/14/16 06:08 Hct 26.1 % (35.0-51.0) L 05/14/16 06:08 MCV 91.7 fL (80.0-94.0) 05/14/16 06:08 MCH 30.4 pg (27.0-31.0) 05/14/16 06:08 MCHC 33.2 g/dL (33.0-37.0) 05/14/16 06:08 RDW 15.9 % (11.5-14.5) H 05/14/16 06:08 Plt Count 122 K/uL (130-400) L 05/14/16 06:08 MPV 9.9 fL (7.2-11.7) 05/14/16 06:08 Neut % (Auto) 60.9 % (50.0-75.0) 05/14/16 06:08 Lymph % (Auto) 27.7 % (20.0-40.0) 05/14/16 06:08 [place] % (Auto) 6.6 % (0.0-10.0) 05/14/16 06:08 Eos % (Auto) 4.0 % (0.0-4.0) 05/14/16 06:08 Baso % (Auto) 0.8 % (0.0-2.0) 05/14/16 06:08 Neut # 5.3 K/uL (1.8-7.0) 05/14/16 06:08 Lymph # 2.4 K/uL (1.0-4.3) 05/14/16 06:08 [place] # 0.6 K/uL (0.0-0.8) 05/14/16 06:08 Eos # 0.3 K/uL (0.0-0.7) 05/14/16 06:08 Baso # 0.1 K/uL (0.0-0.2) 05/14/16 06:08 PT 14.0 SECONDS (9.7-12.2) H 05/12/16 07:38 INR 1.3 05/12/16 07:38 APTT 43 SECONDS (21-34) H 05/13/16 06:14 Sodium 139 mmol/L (132-148) 05/14/16 06:08 Potassium 3.8 mmol/L (3.6-5.2) 05/14/16 06:08 Chloride 102 mmol/L (98-107) 05/14/16 06:08 Carbon Dioxide 28 mmol/L (22-30) 05/14/16 06:08 Anion Gap 13 (10-20) 05/14/16 06:08 BUN 11 mg/dL (9-20) 05/14/16 06:08 Creatinine 1.0 MG/DL (0.8-1.5) 05/14/16 06:08 Est GFR ( Amer) > 60 05/14/16 06:08 Est GFR (Non-Af Amer) > 60 05/14/16 06:08 POC Glucose (mg/dL) 118 mg/dL (65-110) H 05/14/16 16:36 Random Glucose 141 mg/dL (75-110) H 05/14/16 06:08 Calcium 7.7 mg/dl (8.6-10.4) L 05/14/16 06:08 Total Bilirubin 0.7 mg/dL (0.2-1.3) 05/14/16 06:08 AST 22 U/L (17-59) 05/14/16 06:08 ALT 40 U/L (21-72) 05/14/16 06:08 Alkaline Phosphatase 43 U/L (38-126) 05/14/16 06:08 Total Protein 6.3 g/dL (6.3-8.3) 05/14/16 06:08 Albumin 3.3 g/dL (3.5-5.0) L 05/14/16 06:08 Globulin 3.0 gm/dL (2.2-3.9) 05/14/16 06:08 Albumin/Globulin Ratio 1.1 (1.0-2.1) 05/14/16 06:08 Urine Color Yellow (YELLOW) 05/12/16 07:46 Urine Clarity Clear (Clear) 05/12/16 07:46 Urine pH 5.0 (5.0-8.0) 05/12/16 07:46 Ur Specific [place] 1.011 (1.003-1.030) 05/12/16 07:46 Urine Protein 1+ mg/dL (NEGATIVE) H 05/12/16 07:46 Urine Glucose (UA) Normal mg/dL (Normal) 05/12/16 07:46 Urine Ketones Negative mg/dL (NEGATIVE) 05/12/16 07:46 Urine Blood Negative (NEGATIVE) 05/12/16 07:46 Urine Nitrate Negative (NEGATIVE) 05/12/16 07:46 Urine Bilirubin Negative (NEGATIVE) 05/12/16 07:46 Urine Urobilinogen Normal mg/dL (0.2-1.0) 05/12/16 07:46 Ur Leukocyte Esterase Neg [place]/uL (Negative) 05/12/16 07:46 Urine WBC (Auto) < 1 /hpf (0-5) 05/12/16 07:46 Urine RBC (Auto) < 1 /hpf (0-3) 05/12/16 07:46 Urine Bacteria Rare (<OCC) 05/12/16 07:46 Hyaline Casts 0-2 /lpf (0-2) 05/12/16 07:46 Stool Occult Blood Positive (NEGATIVE) H 05/12/16 07:38 Digoxin 1.6 ng/mL (0.8-2.0) 05/13/16 19:58 - Hospital Course Hospital Course: 75 yo male hospitalized for passing bright red blood per rectum on 05/12/2016. He denies any nausea, vomiting, abdominal pain. He underwent a colonoscopy for an anemia 2 days prior with clipping of two colonic polyps. Warfarin and Lovenox was restarted one day after the colonoscopy. He is known to have a chronic atrial fibrillation, a s/p CVA with minimal residual dysarthria, a HPTN , a permanent pacemaker, an IDDM. On admission, his Hgb was 11.0 and gradually dropped to 9.0. He underwent a colonoscopy by Dr Nelson on 05/14/2016. There was no active bleeding. Additional clipping at the previous 2 polypectomies was performed. The patient was restarted on Lovenox and was observed overnight. He had a normal BM in the morning and ther was blood in the stools. His discharge Hgb was 8.6. He was advised to resume Lovenox for another 2 days and start Warfarin again. He will continue Ferrous sulfate 325 mg PO qd and all previous home medications. He will see me in 10 days to recheck his PT/ INR and his CBC. He will see Dr Nelson in 2 weeks. - Date & Time of H&P Date of H&P: 05/12/16 Discharge Exam - Head Exam Head Exam: ATRAUMATIC, NORMAL INSPECTION, NORMOCEPHALIC - Eye Exam Eye Exam: Normal appearance Pupil Exam: NORMAL ACCOMODATION - ENT Exam ENT Exam: Normal Exam - Neck Exam Neck exam: Normal Inspection - Respiratory Exam Respiratory Exam: Clear to PA & Lateral, NORMAL BREATHING PATTERN - Cardiovascular Exam Cardiovascular Exam: Irregular Rhythm - GI/Abdominal Exam GI & Abdominal Exam: Normal Bowel Sounds, Soft, Unremarkable - Rectal Exam Rectal Exam: Deferred - Exam Exam: NORMAL INSPECTION - Extremities Exam Extremities exam: normal inspection - Back Exam Back exam: NORMAL INSPECTION - Neurological Exam Neurological exam: Alert, CN II-XII Intact, Normal Gait, Oriented x3, Reflexes Normal - Psychiatric Exam Psychiatric exam: Normal Affect - Skin Skin Exam: Dry, Intact, Normal Color, Warm Discharge Plan - Follow Up Plan Condition: FAIR Disposition: HOME/ ROUTINE Instructions: Warfarin (By mouth), Enoxaparin (By injection), Atrial Fibrillation (DC), Colonoscopy (DC), Rectal Bleeding (DC), Diabetic Foot Care ( DC), Basic Carbohydrate Counting (DC), Meal Planning with the Plate Method (DC) , Meal Planning with Diabetes Exchanges (DC), Anemia (DC) Additional Instructions: Follow up with Dr Vazquez in 10 days for PT/INR and CBC. Resume all home meds. Lovenox 70 mg S/c for 2 more days. Warfarin 5 mg PO tonight. Ferrous sulfate 325 mg PO qd for anemia. Referrals: Rocky Vazquez MD [Staff Provider] - Clinical Quality Measures - CQM - Heart Failure Follow Up Date (must be within 7 days from discharge): 05/24/16 Follow Up Time: 14:00 - Date & Time of Discharge Summary Date of Discharge Summary: 05/16/16 Time of Discharge Summary: 09:05
== END 2016-05-14 17:00 | disposition home or self-care (01) | DRG 920 ==
LOC: C.ER 06:36 → C.9E 08:21 → C.6T 22:30
PROVIDERS: ADMIT Internal Medicine Cardiovascular Disease; ATTEND Internal Medicine Cardiovascular Disease
PROC: 3E0H8GC Introduction of Other Therapeutic Substance into Lower GI, Via Natural or Artificial Opening Endoscopic (ICD-10-PCS; 2016-05-13)
PROC: 0DJD8ZZ Inspection of Lower Intestinal Tract, Via Natural or Artificial Opening Endoscopic (ICD-10-PCS; 2016-05-13)
PROC: 0W3P8ZZ Control Bleeding in Gastrointestinal Tract, Via Natural or Artificial Opening Endoscopic (ICD-10-PCS; principal; 2016-05-13 09:40)
DX: K91.840 Postprocedural hemorrhage of a digestive system organ or structure following a digestive system procedure (principal); K62.5 Hemorrhage of anus and rectum; K63.3 Ulcer of intestine; I48.2 Chronic atrial fibrillation; E10.9 Type 1 diabetes mellitus without complications; I10 Essential (primary) hypertension; D64.9 Anemia, unspecified; I69.322 Dysarthria following cerebral infarction; Y83.8 Other surgical procedures as the cause of abnormal reaction of the patient, or of later complication, without mention of misadventure at the time of the procedure; E78.00 Pure hypercholesterolemia, unspecified; K57.90 Diverticulosis of intestine, part unspecified, without perforation or abscess without bleeding; M10.9 Gout, unspecified; Z79.01 Long term (current) use of anticoagulants; Z79.4 Long term (current) use of insulin; Z95.0 Presence of cardiac pacemaker; Z83.3 Family history of diabetes mellitus; Z82.49 Family history of ischemic heart disease and other diseases of the circulatory system; Z86.010 Personal history of colon polyps

== ENCOUNTER 2017-02-25 09:28 | Inpatient (IN) | payer MEDICARE, BC ==
[2017-02-25 09:28] VITALS: PULSE 64; BMI 26.7
[2017-02-25] MEDS ORDERED: Iohexol 240 (50 ml) PO STA (09:59)
[2017-02-25] MEDS ORDERED: Iohexol 240 (50 ml) ONE (10:04)
--- NOTE | 2017-02-25 10:09 | C.PDOC ---
History Of Present Illness 76 y/o male with history of Pacemaker, HTN, Afib and on Coumadin presents to ED with complaints of abdominal pain and constipation with associated unable to pass gas for 3 days. Patient denies fever, chills, nausea, vomiting or any other complaints at this time. Time Seen by Provider: 02/25/17 09:45 Chief Complaint (Nursing): Abdominal Pain History Per: Patient History/Exam Limitations: no limitations Onset/Duration Of Symptoms: Days Current Symptoms Are (Timing): Still Present Location Of Pain/Discomfort: Diffuse Past Medical History Reviewed: Historical Data, Nursing Documentation, Vital Signs Vital Signs: Last Vital Signs Temp 98.6 F 02/25/17 15:05 Pulse 87 02/25/17 15:05 Resp 18 02/25/17 15:05 BP 138/75 02/25/17 17:30 Pulse Ox 96 02/25/17 17:39 - Medical History PMH: Atrial Fibrillation, HTN, Hypercholesterolemia Surgical History: Pacemaker - [facility] Procedures CONTROL BLEEDING IN GASTROINTESTINAL TRACT, ENDO (05/12/16) INSPECTION OF LOWER INTESTINAL TRACT, ENDO (05/12/16) INTRODUCTION OF OTH THERAP SUBST INTO LOW GI, ENDO (05/12/16) Family History: States: No Known Family Hx - Social History Hx Alcohol Use: No Hx Substance Use: No - Immunization History Hx Tetanus Toxoid Vaccination: No Hx Influenza Vaccination: Yes (11/2014) Hx Pneumococcal Vaccination: Yes (2011) Review Of Systems Constitutional: Negative for: Fever, Chills Gastrointestinal: Positive for: Abdominal Pain, Constipation Genitourinary: Negative for: Dysuria, Hematuria Musculoskeletal: Negative for: Back Pain Neurological: Negative for: Weakness, Numbness Physical Exam - Physical Exam Appears: Non-toxic, No Acute Distress Skin: Normal Color, Warm, Dry, No Rash Head: Atraumatic, Normacephalic Neck: Normal ROM, Supple Cardiovascular: Rhythm Regular Respiratory: Normal Breath Sounds, No Rales, No Rhonchi, No Wheezing Gastrointestinal/Abdominal: Soft, Tenderness (Non focal), No Guarding, No Rebound Back: No CVA Tenderness Extremity: Normal ROM, Capillary Refill (<2 seconds) Neurological/Psych: Oriented x3 ED Course And Treatment - Laboratory Results Result Diagrams: 02/25/17 10:11 02/25/17 10:11 O2 Sat by Pulse Oximetry: 96 (RA) Pulse Ox Interpretation: Normal Medical Decision Making Medical Decision Making: ro obstruction, colitis- labs imaging pendining [address], antibiotics ordered dr vera accepts requests dr martin consult discussed with surgical specialist. dr vera and resident bedside. Disposition - Disposition Disposition: HOSPITALIZED Disposition Time: 17:39 Condition: STABLE - Clinical Impression Clinical Impression: Appendicitis - Scribe Statement The provider has reviewed the documentation as recorded by the Luisibrivas De Santiago All medical record entries made by the Patrice were at my direction and personally dictated by me. I have reviewed the chart and agree that the record accurately reflects my personal performance of the history, physical exam, medical decision making, and the department course for this patient. I have also personally directed, reviewed, and agree with the discharge instructions and disposition.
[2017-02-25 10:22] LABS: BASO # 0.2 K/uL (0.0-0.2); EOS % 0.1 % (0.0-4.0); LYMPH # 2.6 K/uL (1.0-4.3); LYMPH % 13.8 % (20.0-40.0); MEAN CELL VOLUME 92.5 fL (80.0-94.0); MEAN CORPUSCULAR HEMOGLOBIN 31.6 pg (27.0-31.0); MEAN CORPUSCULAR HGB CONC 34.1 g/dL (33.0-37.0); MEAN PLATELET VOLUME 9.7 fL (7.2-11.7); MONO # 1.1 K/uL (0.0-0.8); NEUT # 14.9 K/uL (1.8-7.0); NEUT % 79.1 % (50.0-75.0); RBC 4.09 Mil/uL (4.40-5.90); RED CELL DISTRIBUTION WIDTH 14.1 % (11.5-14.5)
[2017-02-25 10:24] LABS: HEMOGLOBIN 12.9 g/dL (12.0-18.0); WHITE BLOOD COUNT 18.9 K/uL (4.8-10.8)
[2017-02-25 10:25] LABS: PROTHROMBIN TIME 23.8 SECONDS (9.7-12.2)
--- NOTE | 2017-02-25 10:29 | RAD ---
PROCEDURE: CHEST RADIOGRAPH, 1 VIEW HISTORY: abd pain COMPARISON: 09/07/2005 FINDINGS: LUNGS: Shallow lung volumes. No consolidation. PLEURA: No pneumothorax or pleural fluid seen. CARDIOVASCULAR: Mild cardiomegaly. Position/ configuration of pacemaker Satisfactory and similar. Probable mild pulmonary venous congestion even considering the shallow lung volumes OSSEOUS STRUCTURES: No significant abnormalities. VISUALIZED UPPER ABDOMEN: Normal. OTHER FINDINGS: None. IMPRESSION: Lung volumes are more shallow than before. Even allowing for this minimal increased pulmonary venous congestion is probable -this may be chronic No consolidation. No effusion. Pacemaker position satisfactory.
[2017-02-25 10:41] LABS: URINE BILIRUBIN NEGATIVE (NEGATIVE); URINE BLOOD 2+ (NEGATIVE); URINE CLARITY Clear (Clear); URINE COLOR Yellow (YELLOW); URINE GLUCOSE (UA) NORMAL (Normal); URINE LEUKOCYTE ESTERASE NEG Leu/uL (Negative); URINE NITRATE NEGATIVE (NEGATIVE); URINE PROTEIN 2+ mg/dL (NEGATIVE); URINE UROBILINOGEN NORMAL mg/dL (0.2-1.0)
[2017-02-25 10:48] LABS: ALB/GLOB RATIO 1.1 (1.0-2.1); ALBUMIN 4.1 g/dL (3.5-5.0); ALT/SGPT 36 U/L (21-72); AST/SGOT 26 U/L (17-59); BLOOD UREA NITROGEN 27 mg/dL (9-20); CALCIUM 8.5 mg/dl (8.6-10.4); GFR AFRICAN-AMERICAN > 60; GFR NON-AFRICAN AMERICAN 59; LIPASE 149 U/L (23-300)
--- NOTE | 2017-02-25 12:26 | CT ---
PROCEDURE: CT Abdomen and Pelvis without IV contrast. HISTORY: abd pain COMPARISON: None available TECHNIQUE: Contiguous axial images of the abdomen and pelvis. Oral contrast was administered. No IV contrast given. Coronal and Sagittal reformats generated and reviewed. Radiation dose: Total exam DLP = 575.37 mGy-cm. This CT exam was performed using one or more of the following dose reduction techniques: Automated exposure control, adjustment of the mA and/or kV according to patient size, and/or use of iterative reconstruction technique. FINDINGS: There is limited evaluation of the solid organs without the administration of IV contrast. LOWER THORAX: No visible consolidation, pleural effusion, or pneumothorax. Partially imaged cardiomegaly. LIVER: Hepatomegaly. GALLBLADDER AND BILE DUCTS: Unremarkable unenhanced contracted appearance. PANCREAS: Too small to characterize tiny 4 mm hypodensity at the pancreatic head appears fat density, possibly lipoma. SPLEEN: Unremarkable unenhanced appearance. ADRENALS: Unremarkable unenhanced appearance. KIDNEYS AND URETERS: No hydronephrosis or obstructing renal calculus. BLADDER: Mildly thick-walled urinary bladder may be exaggerated by under distension. REPRODUCTIVE: Enlarged prostate gland measures approximately 5.1 x 5.6 cm. APPENDIX: The appendix appears mildly dilated measuring approximately 8 mm in diameter with evidence of mild adjacent inflammatory changes ; correlate clinically for possibility of acute appendicitis. BOWEL: The stomach is nondistended. The bowel loops appear within normal limits of caliber without evidence of intestinal obstruction. Questionable wall thickening involving the descending colon; correlate clinically for possibility of diverticulitis or colitis. PERITONEUM: No significant free fluid. No definite free air. LYMPH NODES: No bulky lymphadenopathy identified. VASCULATURE: Atherosclerotic calcifications. No aortic aneurysm. BONES: Degenerative changes. OTHER FINDINGS: None. IMPRESSION: The appendix appears mildly dilated measuring approximately 8 mm in diameter with evidence of mild adjacent inflammatory changes ; correlate clinically for possibility of acute appendicitis. Questionable wall thickening involving the descending colon; correlate clinically for possibility of diverticulitis or colitis. Enlarged prostate gland. Recommend correlation with PSA. Mildly thick-walled urinary bladder may be exaggerated by under distension. Recommend correlation with urinalysis. Hepatomegaly. Too small to characterize tiny 4 mm hypodensity at the pancreatic head appears fat density, possibly lipoma.
[2017-02-25] MEDS ORDERED: Piperacillin/Tazobact 3.375 gm 100 ML IVPB STA (12:31)
[2017-02-25] MEDS ORDERED: Piperacill/Tazo 3.375gm in Dex 3.375 GM/50 ML BAG IVPB STA (12:44)
[2017-02-25] MEDS ORDERED: Phytonadione 10 mg/ml Inj (Adult) SC ONE (13:15)
--- NOTE | 2017-02-25 14:27 | CP.PCM.CON ---
History of Present Illness - History of Present Illness History of Present Illness: General Surgery Consult Note for Dr. Davis Reason for consult: suspected appendicitis 76 M with PMH of atrial fibrillation on Coumadin, s/p pacemaker, CVA with residual aphasia/apraxia, HTN, HLD, DM presents to [facility] ED witch complaint of abdominal pain. Son was at bedside and provided most of the history due to clinical condition of patient. As per son, patient has had pain for 3 days and a sudden onset. He reports that patient never had this pain in the past. Patient was given an enema in the ED and subsequently had a BM. After that, the pain resolved. Patient rated pain as moderate-severe at its worst. He describes pain as constant and sharp located in periumbilical region without radiation. Denies associated fever/chills, nausea/vomiting, and diarrhea. Denies exacerbating factors but BM alleviates pain. Before arrival in ED, patient had no had BM for 4 days. 12 point ROS otherwise negative unless stated above. PMH: atrial fibrillation on Coumadin, s/p pacemaker, CVA with residual aphasia/ apraxia, HTN, HLD, DM Meds: As per EMR Allergy:NKDA PSH: pacemaker placement FH: non-contributory Social: Former smoker - quit 20 years ago, denies EtOH/illicit drug use, lives with and son, completes ADLs with some assistance Review of Systems - Review of Systems All systems: reviewed and no additional remarkable complaints except (as per HPI ) Past Patient History - Infectious Disease Hx of Infectious Diseases: None - Tetanus Immunizations Tetanus Immunization: Unknown - Past Medical History & Family History Past Medical History?: Yes - Past Social History Smoking Status: Never Smoked - CARDIAC Hx Atrial Fibrillation: Yes Hx Hypercholesterolemia: Yes Hx Hypertension: Yes Hx Pacemaker: Yes - PULMONARY Hx Respiratory Disorders: No - NEUROLOGICAL Hx Neurological Disorder: Yes HX Cerebrovascular Accident: Yes (x3) - ENDOCRINE/METABOLIC Hx Diabetes Mellitus Type 1: Yes - MUSCULOSKELETAL/RHEUMATOLOGICAL Hx Falls: No - PSYCHIATRIC Hx Substance Use: No - SURGICAL HISTORY Hx Surgeries: Yes Hx Cataract Extraction: Yes (Bilateral) Other/Comment: PPM - ANESTHESIA Hx Anesthesia: Yes Hx Anesthesia Reactions: No Meds Allergies/Adverse Reactions: Allergies Allergy/AdvReac Type Severity Reaction Status Date / Time IV dye Allergy Severe SHORTNESS Uncoded 02/25/17 09:39 OF BREATH Physical Exam - Constitutional Appears: No Acute Distress - Head Exam Head Exam: ATRAUMATIC, NORMOCEPHALIC - Eye Exam Eye Exam: EOMI, Normal appearance Pupil Exam: PERRL - ENT Exam ENT Exam: Mucous Membranes Moist - Respiratory Exam Respiratory Exam: NORMAL BREATHING PATTERN - Cardiovascular Exam Cardiovascular Exam: REGULAR RHYTHM - GI/Abdominal Exam GI & Abdominal Exam: Distended (mild), Normal Bowel Sounds, Soft. absent: Firm , Guarding, Hernia, Rebound, Rigid, Tenderness - Extremities Exam Extremities exam: Positive for: normal capillary refill, pedal pulses present. Negative for: calf tenderness - Back Exam Back exam: absent: CVA tenderness (L), CVA tenderness (R) - Neurological Exam Neurological exam: Alert, CN II-XII Intact Additional comments: answers some questions appropriately but has aphasia/apraxia - Psychiatric Exam Psychiatric exam: Normal Affect, Normal Mood - Skin Skin Exam: Dry, Intact, Normal Color, Warm Results - Vital Signs Recent Vital Signs: Last Vital Signs Temp 97.9 F 02/25/17 13:31 Pulse 80 02/25/17 13:31 Resp 20 02/25/17 13:31 BP 166/79 H 02/25/17 13:31 Pulse Ox 98 02/25/17 13:31 - Labs Result Diagrams: 02/25/17 10:11 02/25/17 10:11 Labs: Laboratory Results - last 24 hr 02/25/17 02/25/17 02/25/17 10:11 10:11 10:11 WBC 18.9 H D RBC 4.09 L Hgb 12.9 D Hct 37.8 MCV 92.5 MCH 31.6 H MCHC 34.1 RDW 14.1 Plt Count 147 MPV 9.7 Neut % (Auto) 79.1 H Lymph % (Auto) 13.8 L [place] % (Auto) 6.0 Eos % (Auto) 0.1 Baso % (Auto) 1.0 Neut # 14.9 H Lymph # 2.6 [place] # 1.1 H Eos # 0.0 Baso # 0.2 PT 23.8 H INR 2.0 APTT 38 H Sodium 133 Potassium 4.1 Chloride 97 L Carbon Dioxide 27 Anion Gap 14 BUN 27 H Creatinine 1.2 Est GFR ( Amer) > 60 Est GFR (Non-Af Amer) 59 Random Glucose 148 H Calcium 8.5 L Total Bilirubin 0.9 AST 26 ALT 36 Alkaline Phosphatase 45 Total Protein 8.0 Albumin 4.1 Globulin 3.9 Albumin/Globulin Ratio 1.1 Lipase 149 Urine Color Urine Clarity Urine pH Ur Specific [place] Urine Protein Urine Glucose (UA) Urine Ketones Urine Blood Urine Nitrate Urine Bilirubin Urine Urobilinogen Ur Leukocyte Esterase Urine WBC (Auto) Urine RBC (Auto) Digoxin Blood Type Antibody Screen 02/25/17 02/25/17 02/25/17 10:11 10:27 13:35 WBC RBC Hgb Hct MCV MCH MCHC RDW Plt Count MPV Neut % (Auto) Lymph % (Auto) [place] % (Auto) Eos % (Auto) Baso % (Auto) Neut # Lymph # [place] # Eos # Baso # PT INR APTT Sodium Potassium Chloride Carbon Dioxide Anion Gap BUN Creatinine Est GFR ( Amer) Est GFR (Non-Af Amer) Random Glucose Calcium Total Bilirubin AST ALT Alkaline Phosphatase Total Protein Albumin Globulin Albumin/Globulin Ratio Lipase Urine Color Yellow Urine Clarity Clear Urine pH 5.0 Ur Specific [place] 1.016 Urine Protein 2+ H Urine Glucose (UA) Normal Urine Ketones Negative Urine Blood 2+ H Urine Nitrate Negative Urine Bilirubin Negative Urine Urobilinogen Normal Ur Leukocyte Esterase Neg Urine WBC (Auto) 1 Urine RBC (Auto) 7 H Digoxin 0.7 L Blood Type B POSITIVE Antibody Screen Negative Assessment & Plan - Assessment and Plan (Free Text) Plan: 76 M with abdominal pain and leukocytosis -Liquid diet, ADAT -IV fluids -IV antibiotics -Analgesics PRN -Serial abdominal exams -No surgical intervention planned right now but will continue to follow and reassess daily -Discuss with Dr. Susan Rose PGY1
[2017-02-25] MEDS: Sodium Chloride 0.9% 1,000 ML IV SCH (15:30)
--- NOTE | 2017-02-25 16:47 | CP.PCM.CON ---
History of Present Illness - History of Present Illness History of Present Illness: This is a 76 year old man with abdominal pain. Patient has a history of diverticulosis and colon polyps diagnosed on colonoscopy 05/09/2016. Rectal bleeding was noted two says later after he resumed lovenox and coumandin. Repeat colonoscopy showed ulceration at the polypectomy sites, and additional hemostatic clips were placed. He did well until three days prior to admission when he became constipated. He noted onset of RLQ pain, poorly characterized, which persisted until the morning , when he presented to the ER. Evaluation in the ER showed low grade fever to 100.0 degrees, leukocytosis 18,[address] findings of a mildly dilated appendix measuring 8 mm with mild adjacent inflammatory changes. He denies having nausea, vomiting, loss of appetite, heartburn, difficulty swallowing, diarrhea, and rectal bleeding. He denies having fever and chills. Review of Systems - Review of Systems All systems: reviewed and no additional remarkable complaints except - Constitutional Constitutional: absent: Chills, Fever - Gastrointestinal Gastrointestinal: Abdominal Pain, Constipation. absent: Diarrhea, Dysphagia, Heartburn, Hematochezia, Nausea, Vomiting - Genitourinary Genitourinary: absent: Dysuria, Hematuria - Musculoskeletal Musculoskeletal: absent: Back Pain Past Patient History - Infectious Disease Hx of Infectious Diseases: None - Tetanus Immunizations Tetanus Immunization: Unknown - Past Medical History & Family History Past Medical History?: Yes - Past Social History Smoking Status: Never Smoked - CARDIAC Hx Atrial Fibrillation: Yes Hx Hypercholesterolemia: Yes Hx Hypertension: Yes Hx Pacemaker: Yes - PULMONARY Hx Respiratory Disorders: No - NEUROLOGICAL Hx Neurological Disorder: Yes HX Cerebrovascular Accident: Yes (x3) - HEENT Hx Cataracts: Yes - ENDOCRINE/METABOLIC Hx Diabetes Mellitus Type 1: Yes - MUSCULOSKELETAL/RHEUMATOLOGICAL Hx Falls: No - GASTROINTESTINAL Hx Gastrointestinal Disorders: Yes Hx Constipation: Yes - PSYCHIATRIC Hx Substance Use: No - SURGICAL HISTORY Hx Surgeries: Yes Hx Cataract Extraction: Yes (Bilateral) Other/Comment: PPM - ANESTHESIA Hx Anesthesia: Yes Hx Anesthesia Reactions: No Meds Allergies/Adverse Reactions: Allergies Allergy/AdvReac Type Severity Reaction Status Date / Time IV dye Allergy Severe SHORTNESS Uncoded 02/25/17 09:39 OF BREATH - Medications Medications: Current Medications Carvedilol (Coreg) 25 mg PO BID [facility] Docusate Sodium (Colace) 100 mg PO DAILY [facility] Famotidine (Pepcid) 20 mg IVP DAILY [facility] Home Med (Bimatoprost [Lumigan]) 1 drop EACHEYE HS [facility] Ciprofloxacin (Cipro 200mg/100ml D5w) 100 mls @ 67 mls/hr IVPB Q12H [facility] Metronidazole 250 mg/ (Miscellaneous) 50 mls @ 100 mls/hr IVPB Q8 [facility] Sodium Chloride (Sodium Chloride 0.9%) 1,000 mls @ 100 mls/hr IV .Q10H [facility] Lisinopril (Zestril) 10 mg PO DAILY [facility] Pantoprazole Sodium (Protonix Ec Tab) 40 mg PO DAILY [facility] Physical Exam - Head Exam Head Exam: ATRAUMATIC, NORMOCEPHALIC - Eye Exam Eye Exam: EOMI, PERRL - Neck Exam Neck exam: Negative for: Lymphadenopathy, Thyromegaly - Respiratory Exam Respiratory Exam: NORMAL BREATHING PATTERN. absent: Rales, Rhonchi, Wheezes - Cardiovascular Exam Cardiovascular Exam: Irregular Rhythm, +S1, +S2. absent: Gallop, Rubs, Systolic Murmur - GI/Abdominal Exam GI & Abdominal Exam: Normal Bowel Sounds, Soft, Tenderness. absent: Mass, Organomegaly Additional comments: Tenderness to palpation in RLQ without rebound - Rectal Exam Rectal Exam: Deferred - Extremities Exam Extremities exam: Negative for: calf tenderness Results - Vital Signs Recent Vital Signs: Last Vital Signs Temp 98.6 F 02/25/17 15:05 Pulse 87 02/25/17 15:05 Resp 18 02/25/17 15:05 BP 138/73 02/25/17 15:05 Pulse Ox 96 02/25/17 15:05 - Labs Result Diagrams: 02/25/17 10:11 02/25/17 10:11 Labs: Laboratory Results - last 24 hr 02/25/17 02/25/17 02/25/17 10:11 10:11 10:11 WBC 18.9 H D RBC 4.09 L Hgb 12.9 D Hct 37.8 MCV 92.5 MCH 31.6 H MCHC 34.1 RDW 14.1 Plt Count 147 MPV 9.7 Neut % (Auto) 79.1 H Lymph % (Auto) 13.8 L [place] % (Auto) 6.0 Eos % (Auto) 0.1 Baso % (Auto) 1.0 Neut # 14.9 H Lymph # 2.6 [place] # 1.1 H Eos # 0.0 Baso # 0.2 PT 23.8 H INR 2.0 APTT 38 H Sodium 133 Potassium 4.1 Chloride 97 L Carbon Dioxide 27 Anion Gap 14 BUN 27 H Creatinine 1.2 Est GFR ( Amer) > 60 Est GFR (Non-Af Amer) 59 Random Glucose 148 H Calcium 8.5 L Total Bilirubin 0.9 AST 26 ALT 36 Alkaline Phosphatase 45 Total Protein 8.0 Albumin 4.1 Globulin 3.9 Albumin/Globulin Ratio 1.1 Lipase 149 Urine Color Urine Clarity Urine pH Ur Specific [place] Urine Protein Urine Glucose (UA) Urine Ketones Urine Blood Urine Nitrate Urine Bilirubin Urine Urobilinogen Ur Leukocyte Esterase Urine WBC (Auto) Urine RBC (Auto) Digoxin Blood Type Antibody Screen 02/25/17 02/25/17 02/25/17 10:11 10:27 13:35 WBC RBC Hgb Hct MCV MCH MCHC RDW Plt Count MPV Neut % (Auto) Lymph % (Auto) [place] % (Auto) Eos % (Auto) Baso % (Auto) Neut # Lymph # [place] # Eos # Baso # PT INR APTT Sodium Potassium Chloride Carbon Dioxide Anion Gap BUN Creatinine Est GFR ( Amer) Est GFR (Non-Af Amer) Random Glucose Calcium Total Bilirubin AST ALT Alkaline Phosphatase Total Protein Albumin Globulin Albumin/Globulin Ratio Lipase Urine Color Yellow Urine Clarity Clear Urine pH 5.0 Ur Specific [place] 1.016 Urine Protein 2+ H Urine Glucose (UA) Normal Urine Ketones Negative Urine Blood 2+ H Urine Nitrate Negative Urine Bilirubin Negative Urine Urobilinogen Normal Ur Leukocyte Esterase Neg Urine WBC (Auto) 1 Urine RBC (Auto) 7 H Digoxin 0.7 L Blood Type B POSITIVE Antibody Screen Negative Assessment & Plan (1) RLQ abdominal pain Assessment and Plan: Patient has RLQ pain and tenderness, low grade fever, leukocytosis and abnormal CT scan of the appendix. The clinical picture is consistent with mild appendicitis. Agree with antibiotics, possible repeat CT scan. Status: Acute
[2017-02-25] MEDS: Ciprofloxacin 200mg/100ml D5W 100 ML IVPB SCH (17:00)
[2017-02-25] MEDS: metroNIDAZOLE IV 500 mg/100 ml 250 MG in Premixed IV 1 EA IVPB SCH ×2 (18:00→21:38)
[2017-02-25] MEDS: (Novolog) Insulin Aspart, Recombinant 100 u/ml 10 ml vial SC SCH (21:41)
[2017-02-25] MEDS ORDERED: BIMATOPROST EACHEYE SCH (22:00)
[2017-02-25] MEDS ORDERED: Latanoprost 2.5 ml Opht Soln OU SCH (22:00)
--- NOTE | 2017-02-25 23:58 | CP.PCM.HP ---
History of Present Illness - History of Present Illness History of Present Illness: This is 76 years old male who is complaining of a severe RLQ abdominal pain since last night with a history of constipation for the past 3 days. He denies any fever, any nausea, vomiting, any burning micturation. But, in the ED he had a low grade temperature and a WBC: 18,800. A CT scan of the abdomen disclosed a mildly dilated appendix with sign of adis-appendiceal inflammation. He states that the RLQ abdominal pain became much better after the CT scan, and IV antibiotic, but still persists slightly. He is known to have a chronic atrial fibrillation, a hypertension, an IDDM, a gout, a s/p pacemaker insertion in 2005 , a s/p CVA in 2005 with residual mild right sided weakness and mild apraxia of the speech. He has been evaluated by Dr Quinones ( surgeon) who suggested to observe him medically and there is immediate indication for surgery, and Dr Nelson ( GI) who also suspected a mild appendicitis, and advised to continue IV antibiotics, to repeat CBC and perhaps a CT scan of the abdomen if symptoms persists. Present on Admission - Present on Admission Any Indicators Present on Admission: No Review of Systems - Gastrointestinal Gastrointestinal: Abdominal Pain, Constipation Additional comments: RLQ abdominal pain. Past Patient History - Infectious Disease Hx of Infectious Diseases: None - Tetanus Immunizations Tetanus Immunization: Unknown - Past Medical History & Family History Past Medical History?: Yes - Past Social History Smoking Status: Never Smoked Alcohol: None Drugs: Denies Home Situation {Lives}: With Family Domestic Violence: Negative - CARDIAC Hx Atrial Fibrillation: Yes Hx Hypercholesterolemia: Yes Hx Hypertension: Yes Hx Pacemaker: Yes - PULMONARY Hx Respiratory Disorders: No - NEUROLOGICAL Hx Neurological Disorder: Yes HX Cerebrovascular Accident: Yes (x3) - HEENT Hx Cataracts: Yes - ENDOCRINE/METABOLIC Hx Diabetes Mellitus Type 1: Yes - MUSCULOSKELETAL/RHEUMATOLOGICAL Hx Falls: No - GASTROINTESTINAL Hx Gastrointestinal Disorders: Yes Hx Constipation: Yes Hx Diverticulitis: Yes - PSYCHIATRIC Hx Substance Use: No - SURGICAL HISTORY Hx Surgeries: Yes Hx Cataract Extraction: Yes (Bilateral) Other/Comment: PPM - ANESTHESIA Hx Anesthesia: Yes Hx Anesthesia Reactions: No Meds Allergies/Adverse Reactions: Allergies Allergy/AdvReac Type Severity Reaction Status Date / Time IV dye Allergy Severe SHORTNESS Uncoded 02/25/17 09:39 OF BREATH Physical Exam - Constitutional Appears: No Acute Distress - Head Exam Head Exam: NORMAL INSPECTION - Eye Exam Eye Exam: Normal appearance - ENT Exam ENT Exam: Normal Exam - Neck Exam Neck exam: Positive for: Normal Inspection - Respiratory Exam Respiratory Exam: Clear to Auscultation Bilateral - Cardiovascular Exam Cardiovascular Exam: REGULAR RHYTHM - GI/Abdominal Exam GI & Abdominal Exam: Normal Bowel Sounds, Soft, Tenderness Additional comments: Mild tenderness of the RLQ , but no guarding, no rebound tenderness. - Rectal Exam Rectal Exam: NORMAL INSPECTION - Exam Exam: NORMAL INSPECTION - Extremities Exam Extremities exam: Positive for: normal inspection - Back Exam Back exam: NORMAL INSPECTION - Neurological Exam Neurological exam: Alert, Normal Gait, Oriented x3 Additional comments: Mild speech apraxia. - Psychiatric Exam Psychiatric exam: Anxious - Skin Skin Exam: Dry, Intact, Normal Color, Warm Results - Vital Signs Recent Vital Signs: Last Vital Signs Temp 98.6 F 02/25/17 15:05 Pulse 87 02/25/17 15:05 Resp 18 02/25/17 15:05 BP 138/75 02/25/17 17:30 Pulse Ox 96 02/25/17 17:41 - Labs Result Diagrams: 02/25/17 10:11 02/25/17 10:11 Labs: Laboratory Results - last 24 hr 02/25/17 02/25/17 02/25/17 10:11 10:11 10:11 WBC 18.9 H D RBC 4.09 L Hgb 12.9 D Hct 37.8 MCV 92.5 MCH 31.6 H MCHC 34.1 RDW 14.1 Plt Count 147 MPV 9.7 Neut % (Auto) 79.1 H Lymph % (Auto) 13.8 L [place] % (Auto) 6.0 Eos % (Auto) 0.1 Baso % (Auto) 1.0 Neut # 14.9 H Lymph # 2.6 [place] # 1.1 H Eos # 0.0 Baso # 0.2 PT 23.8 H INR 2.0 APTT 38 H Sodium 133 Potassium 4.1 Chloride 97 L Carbon Dioxide 27 Anion Gap 14 BUN 27 H Creatinine 1.2 Est GFR ( Amer) > 60 Est GFR (Non-Af Amer) 59 POC Glucose (mg/dL) Random Glucose 148 H Calcium 8.5 L Total Bilirubin 0.9 AST 26 ALT 36 Alkaline Phosphatase 45 Total Protein 8.0 Albumin 4.1 Globulin 3.9 Albumin/Globulin Ratio 1.1 Lipase 149 Urine Color Urine Clarity Urine pH Ur Specific [place] Urine Protein Urine Glucose (UA) Urine Ketones Urine Blood Urine Nitrate Urine Bilirubin Urine Urobilinogen Ur Leukocyte Esterase Urine WBC (Auto) Urine RBC (Auto) Digoxin Blood Type Antibody Screen 02/25/17 02/25/17 02/25/17 10:11 10:27 13:35 WBC RBC Hgb Hct MCV MCH MCHC RDW Plt Count MPV Neut % (Auto) Lymph % (Auto) [place] % (Auto) Eos % (Auto) Baso % (Auto) Neut # Lymph # [place] # Eos # Baso # PT INR APTT Sodium Potassium Chloride Carbon Dioxide Anion Gap BUN Creatinine Est GFR ( Amer) Est GFR (Non-Af Amer) POC Glucose (mg/dL) Random Glucose Calcium Total Bilirubin AST ALT Alkaline Phosphatase Total Protein Albumin Globulin Albumin/Globulin Ratio Lipase Urine Color Yellow Urine Clarity Clear Urine pH 5.0 Ur Specific [place] 1.016 Urine Protein 2+ H Urine Glucose (UA) Normal Urine Ketones Negative Urine Blood 2+ H Urine Nitrate Negative Urine Bilirubin Negative Urine Urobilinogen Normal Ur Leukocyte Esterase Neg Urine WBC (Auto) 1 Urine RBC (Auto) 7 H Digoxin 0.7 L Blood Type B POSITIVE Antibody Screen Negative 02/25/17 02/25/17 17:24 21:00 WBC RBC Hgb Hct MCV MCH MCHC RDW Plt Count MPV Neut % (Auto) Lymph % (Auto) [place] % (Auto) Eos % (Auto) Baso % (Auto) Neut # Lymph # [place] # Eos # Baso # PT INR APTT Sodium Potassium Chloride Carbon Dioxide Anion Gap BUN Creatinine Est GFR ( Amer) Est GFR (Non-Af Amer) POC Glucose (mg/dL) 135 H 159 H Random Glucose Calcium Total Bilirubin AST ALT Alkaline Phosphatase Total Protein Albumin Globulin Albumin/Globulin Ratio Lipase Urine Color Urine Clarity Urine pH Ur Specific [place] Urine Protein Urine Glucose (UA) Urine Ketones Urine Blood Urine Nitrate Urine Bilirubin Urine Urobilinogen Ur Leukocyte Esterase Urine WBC (Auto) Urine RBC (Auto) Digoxin Blood Type Antibody Screen Assessment & Plan (1) RLQ abdominal pain Assessment and Plan: No immediate indication for surgery according to Dr Quinones ( surgeon). Will continue IV Cipro and Flagyl IV> repeat CBC in AM and CT of the abdomen, if necessary. Status: Acute (2) Afib Assessment and Plan: Will transfuse FFP if surgery is indicated. Hold Warfarin for now and start Lovenox s/c . Status: Chronic (3) Insulin dependent diabetes mellitus Assessment and Plan: Control blood glucose according to Accucheck findings. Status: Chronic (4) Presence of permanent cardiac pacemaker Status: Chronic - Date & Time Date: 02/26/17 Time: 16:00 Decision To Admit - Pt Status Changed To: Hospital Disposition Of: Inpatient - Admit Certification Admit to Inpatient:: After my assessment, the patient will require hospitalization for at least two midnights. This is because of the severity of symptoms shown, intensity of services needed, and/or the medical risk in this patient being treated as an outpatient. - InPatient: Physician Admission Certification:: After my assessments, the patient requires hospitalization for at least 2 midnights. - . Bed Request Type: Regular Admitting Physician: Rocky Vazquez
[2017-02-26 01:40] VITALS: RESP 20; O2SAT 95
[2017-02-26] MEDS: Ciprofloxacin 200mg/100ml D5W 100 ML IVPB SCH ×2 (01:49→15:03)
[2017-02-26] MEDS: metroNIDAZOLE IV 500 mg/100 ml 250 MG in Premixed IV 1 EA IVPB SCH ×2 (05:56→14:15)
[2017-02-26] MEDS: Sodium Chloride 0.9% 1,000 ML IV SCH (05:57)
[2017-02-26 07:01] LABS: ALBUMIN 3.8 g/dL (3.5-5.0); ALT/SGPT 33 U/L (21-72); AST/SGOT 21 U/L (17-59); BLOOD UREA NITROGEN 20 mg/dL (9-20); CALCIUM 8.5 mg/dl (8.6-10.4); GFR AFRICAN-AMERICAN > 60; GFR NON-AFRICAN AMERICAN > 60
[2017-02-26 07:03] LABS: INR 1.5; PROTHROMBIN TIME 16.9 SECONDS (9.7-12.2)
[2017-02-26 07:27] LABS: BASO # 0.1 K/uL (0.0-0.2); BASO % 0.6 % (0.0-2.0); EOS # 0.3 K/uL (0.0-0.7); EOS % 2.8 % (0.0-4.0); HEMOGLOBIN 12.9 g/dL (12.0-18.0); LYMPH # 2.4 K/uL (1.0-4.3); LYMPH % 24.5 % (20.0-40.0); MEAN CORPUSCULAR HEMOGLOBIN 31.5 pg (27.0-31.0); MEAN CORPUSCULAR HGB CONC 33.5 g/dL (33.0-37.0); MEAN PLATELET VOLUME 10.3 fL (7.2-11.7); MONO # 0.8 K/uL (0.0-0.8); MONO % 8.6 % (0.0-10.0); NEUT # 6.1 K/uL (1.8-7.0); NEUT % 63.5 % (50.0-75.0); RBC 4.1 Mil/uL (4.40-5.90); RED CELL DISTRIBUTION WIDTH 13.7 % (11.5-14.5); WHITE BLOOD COUNT 9.6 K/uL (4.8-10.8)
[2017-02-26] MEDS: (Novolog) Insulin Aspart, Recombinant 100 u/ml 10 ml vial SC SCH ×2 (08:19→13:08)
[2017-02-26] MEDS ORDERED: Pantoprazole 40 mg EC Tab PO SCH (10:00)
[2017-02-26] MEDS ORDERED: Enoxaparin 60 mg Syringe SC SCH (10:00)
--- NOTE | 2017-02-26 12:18 | CP.PCM.PN ---
Subjective - Date & Time of Evaluation Date of Evaluation: 02/26/17 Time of Evaluation: 08:00 - Subjective Subjective: General Surgery Note for Dr. Davis Patient seen and examined at bedside. No acute event overnight. Patient had abdominal pain earlier in the morning but resolved after BM. He is tolerating diet. Patient has no other complaints at this time. Objective - Vital Signs/Intake and Output Vital Signs (last 24 hours): Temp Pulse Resp BP Pulse Ox 98.4 F 68 20 144/76 95 02/26/17 08:20 02/26/17 08:20 02/26/17 08:20 02/26/17 10:41 02/26/17 08:20 Intake and Output: 02/26/17 02/26/17 06:59 18:59 Intake Total 2230 Output Total 200 Balance 2030 - Medications Medications: Current Medications Carvedilol (Coreg) 25 mg PO BID [facility] Last Admin: 02/26/17 10:41 Dose: 25 mg Docusate Sodium (Colace) 100 mg PO DAILY [facility] Last Admin: 02/26/17 10:41 Dose: 100 mg Enoxaparin Sodium (Lovenox) 60 mg SC Q12 [facility] Last Admin: 02/26/17 10:42 Dose: 60 mg Ciprofloxacin (Cipro 200mg/100ml D5w) 100 mls @ 67 mls/hr IVPB Q12H [facility] Last Admin: 02/26/17 01:49 Dose: 67 mls/hr Metronidazole 250 mg/ (Miscellaneous) 50 mls @ 100 mls/hr IVPB Q8 [facility] Last Admin: 02/26/17 05:56 Dose: 100 mls/hr Sodium Chloride (Sodium Chloride 0.9%) 1,000 mls @ 100 mls/hr IV .Q10H [facility] Last Admin: 02/26/17 05:57 Dose: 100 mls/hr Insulin Aspart (Novolog) 0 unit SC ACHS [facility] PRN Reason: Protocol Last Admin: 02/26/17 08:19 Dose: 2 unit Latanoprost (Xalatan Opht) 0 ml OU HS [facility] Last Admin: 02/25/17 21:38 Dose: 2.5 ml Lisinopril (Zestril) 10 mg PO DAILY [facility] Last Admin: 02/26/17 10:41 Dose: 10 mg Pantoprazole Sodium (Protonix Ec Tab) 40 mg PO DAILY [facility] Last Admin: 02/26/17 10:41 Dose: 40 mg - Labs Labs: 02/26/17 06:39 02/26/17 06:39 PT 16.9 SECONDS (9.7-12.2) H D 02/26/17 06:39 INR 1.5 D 02/26/17 06:39 APTT 38 SECONDS (21-34) H 02/25/17 10:11 - Constitutional Appears: No Acute Distress - Eye Exam Eye Exam: Normal appearance - ENT Exam ENT Exam: Mucous Membranes Moist - Respiratory Exam Respiratory Exam: NORMAL BREATHING PATTERN - Cardiovascular Exam Cardiovascular Exam: REGULAR RHYTHM - GI/Abdominal Exam GI & Abdominal Exam: Soft, Normal Bowel Sounds. absent: Tenderness - Neurological Exam Neurological Exam: Alert - Psychiatric Exam Psychiatric exam: Normal Affect, Normal Mood - Skin Skin Exam: Dry, Intact, Normal Color, Warm Assessment and Plan - Assessment and Plan (Free Text) Plan: 76 M with resolved abdominal pain and leukocytosis -HHD mod carb diet -Currently asymptomatic -afebrile, no leukocytosis -No surgical intervention needed at this time -Patient clear for discharge from surgical standpoint -Discussed with Dr. Susan Rose PGY1
--- NOTE | 2017-02-26 15:15 | CP.PCM.PN ---
Subjective - Date & Time of Evaluation Date of Evaluation: 02/26/17 Time of Evaluation: 15:12 - Subjective Subjective: Patient has no abdominal pain, no nausea. Had a normal BM this AM. Tolerated regular foods. WBC: 9,000 Hgb: 12.9 Afebrile. To discharge home on Cipro 500 mg PO BID and Flagyl 500 mg PO TID for 5 days. To resume Warfarin. Repeat CBC, PT/ INR and U/A in 5 days. Objective - Vital Signs/Intake and Output Vital Signs (last 24 hours): Temp Pulse Resp BP Pulse Ox 98.4 F 68 20 144/76 95 02/26/17 08:20 02/26/17 08:20 02/26/17 08:20 02/26/17 10:41 02/26/17 08:20 Intake and Output: 02/26/17 02/26/17 06:59 18:59 Intake Total 2230 Output Total 200 Balance 2030 - Medications Medications: Current Medications Carvedilol (Coreg) 25 mg PO BID [facility] Last Admin: 02/26/17 10:41 Dose: 25 mg Docusate Sodium (Colace) 100 mg PO DAILY [facility] Last Admin: 02/26/17 10:41 Dose: 100 mg Enoxaparin Sodium (Lovenox) 60 mg SC Q12 [facility] Last Admin: 02/26/17 10:42 Dose: 60 mg Ciprofloxacin (Cipro 200mg/100ml D5w) 100 mls @ 67 mls/hr IVPB Q12H [facility] Last Admin: 02/26/17 15:03 Dose: 67 mls/hr Metronidazole 250 mg/ (Miscellaneous) 50 mls @ 100 mls/hr IVPB Q8 [facility] Last Admin: 02/26/17 14:15 Dose: 100 mls/hr Sodium Chloride (Sodium Chloride 0.9%) 1,000 mls @ 100 mls/hr IV .Q10H [facility] Last Admin: 02/26/17 05:57 Dose: 100 mls/hr Insulin Aspart (Novolog) 0 unit SC ACHS [facility] PRN Reason: Protocol Last Admin: 02/26/17 13:08 Dose: 2 unit Latanoprost (Xalatan Opht) 0 ml OU HS [facility] Last Admin: 02/25/17 21:38 Dose: 2.5 ml Lisinopril (Zestril) 10 mg PO DAILY [facility] Last Admin: 02/26/17 10:41 Dose: 10 mg Pantoprazole Sodium (Protonix Ec Tab) 40 mg PO DAILY [facility] Last Admin: 02/26/17 10:41 Dose: 40 mg - Labs Labs: 02/26/17 06:39 02/26/17 06:39 PT 16.9 SECONDS (9.7-12.2) H D 02/26/17 06:39 INR 1.5 D 02/26/17 06:39 APTT 38 SECONDS (21-34) H 02/25/17 10:11 - Constitutional Appears: No Acute Distress - Head Exam Head Exam: NORMAL INSPECTION - Eye Exam Eye Exam: Normal appearance - ENT Exam ENT Exam: Normal Exam - Neck Exam Neck Exam: Normal Inspection - Respiratory Exam Respiratory Exam: Clear to Ausculation Bilateral, NORMAL BREATHING PATTERN - Cardiovascular Exam Cardiovascular Exam: Irregular Rhythm, Murmur - GI/Abdominal Exam GI & Abdominal Exam: Soft, Normal Bowel Sounds - Rectal Exam Rectal Exam: Deferred - Extremities Exam Extremities Exam: Normal Inspection - Back Exam Back Exam: NORMAL INSPECTION - Neurological Exam Neurological Exam: Alert, Awake, Normal Gait, Oriented x3 - Psychiatric Exam Psychiatric exam: Anxious - Skin Skin Exam: Dry, Intact, Normal Color, Warm Assessment and Plan (1) RLQ abdominal pain Status: Resolved (2) Afib Status: Chronic (3) Insulin dependent diabetes mellitus Status: Chronic (4) Presence of permanent cardiac pacemaker Status: Chronic
[2017-02-26 15:48] VITALS: BP 145/89; PULSE 70; TEMP 97.5
--- NOTE | 2017-02-26 16:35 | CP.PCM.PN ---
Subjective - Date & Time of Evaluation Date of Evaluation: 02/26/17 Time of Evaluation: 16:33 - Subjective Subjective: Patient reports that the abdominal pain has resolved. He denies having nausea or vomiting. He had two soft bowel movements today. Objective - Vital Signs/Intake and Output Vital Signs (last 24 hours): Temp Pulse Resp BP Pulse Ox 97.5 F L 70 20 145/89 95 02/26/17 15:46 02/26/17 15:46 02/26/17 15:46 02/26/17 15:46 02/26/17 08:20 Intake and Output: 02/26/17 02/26/17 06:59 18:59 Intake Total 2230 Output Total 200 Balance 2030 - Medications Medications: Current Medications Carvedilol (Coreg) 25 mg PO BID [facility] Last Admin: 02/26/17 10:41 Dose: 25 mg Docusate Sodium (Colace) 100 mg PO DAILY [facility] Last Admin: 02/26/17 10:41 Dose: 100 mg Enoxaparin Sodium (Lovenox) 60 mg SC Q12 [facility] Last Admin: 02/26/17 10:42 Dose: 60 mg Ciprofloxacin (Cipro 200mg/100ml D5w) 100 mls @ 67 mls/hr IVPB Q12H [facility] Last Admin: 02/26/17 15:03 Dose: 67 mls/hr Metronidazole 250 mg/ (Miscellaneous) 50 mls @ 100 mls/hr IVPB Q8 [facility] Last Admin: 02/26/17 14:15 Dose: 100 mls/hr Sodium Chloride (Sodium Chloride 0.9%) 1,000 mls @ 100 mls/hr IV .Q10H [facility] Last Admin: 02/26/17 05:57 Dose: 100 mls/hr Insulin Aspart (Novolog) 0 unit SC ACHS [facility] PRN Reason: Protocol Last Admin: 02/26/17 13:08 Dose: 2 unit Latanoprost (Xalatan Opht) 0 ml OU HS [facility] Last Admin: 02/25/17 21:38 Dose: 2.5 ml Lisinopril (Zestril) 10 mg PO DAILY [facility] Last Admin: 02/26/17 10:41 Dose: 10 mg Pantoprazole Sodium (Protonix Ec Tab) 40 mg PO DAILY [facility] Last Admin: 02/26/17 10:41 Dose: 40 mg - Labs Labs: 02/26/17 06:39 02/26/17 06:39 PT 16.9 SECONDS (9.7-12.2) H D 02/26/17 06:39 INR 1.5 D 02/26/17 06:39 APTT 38 SECONDS (21-34) H 02/25/17 10:11 - Constitutional Appears: No Acute Distress - Head Exam Head Exam: ATRAUMATIC, NORMOCEPHALIC - Eye Exam Eye Exam: EOMI - Neck Exam Neck Exam: absent: Lymphadenopathy, Thyromegaly - Respiratory Exam Respiratory Exam: NORMAL BREATHING PATTERN. absent: Rales, Rhonchi, Wheezes - Cardiovascular Exam Cardiovascular Exam: REGULAR RHYTHM, +S1, +S2. absent: Gallop, Rubs, Murmur - GI/Abdominal Exam GI & Abdominal Exam: Soft, Normal Bowel Sounds. absent: Tenderness, Mass, Organomegaly - Rectal Exam Rectal Exam: Deferred - Extremities Exam Extremities Exam: absent: Calf Tenderness, Pedal Edema Assessment and Plan (1) RLQ abdominal pain Assessment & Plan: Pain has resolved. Patient may follow up in the office. Plan is to repeat CT scan in 1-2 weeks. Status: Resolved
== END 2017-02-26 16:55 | disposition home or self-care (01) | DRG 394 ==
LOC: C.ER 09:28 → C.9E 12:36 → C.6T 13:19
PROVIDERS: ADMIT Internal Medicine Cardiovascular Disease; ATTEND Internal Medicine Cardiovascular Disease
DX: K35.80 Unspecified acute appendicitis (principal); I69.351 Hemiplegia and hemiparesis following cerebral infarction affecting right dominant side; I48.2 Chronic atrial fibrillation; I69.320 Aphasia following cerebral infarction; K59.00 Constipation, unspecified; M10.9 Gout, unspecified; Z79.01 Long term (current) use of anticoagulants; Z79.4 Long term (current) use of insulin; Z86.010 Personal history of colon polyps; Z87.891 Personal history of nicotine dependence; Z95.0 Presence of cardiac pacemaker; H26.9 Unspecified cataract; R48.2 Apraxia; E10.9 Type 1 diabetes mellitus without complications; E78.00 Pure hypercholesterolemia, unspecified; I10 Essential (primary) hypertension